=== PATIENT | male | born 1975 | race African-American/Black ===

== ENCOUNTER 2020-05-28 10:07 | Emergency (ER) | payer OTHER ==
[~2020-05-28] VITALS: Ht 177.8 cm; Wt 81.8 kg
[2020-05-28 10:33] LABS: BASOPHILS % (AUTO) 0.4 % (0.0-2.0); EOSINOPHILS % (AUTO) 1.1 % (1.0-6.0); HEMATOCRIT 47.5 % (41-53); HEMOGLOBIN 16.3 g/dL (13.5-17.5); LYMPHOCYTES # (AUTO) 2.8 K/uL (1.0-4.8); LYMPHOCYTES % (AUTO) 38.7 % (22.0-44.0); MEAN CORPUSCULAR HEMOGLOBIN 28.3 pg (26.0-34.0); MEAN CORPUSCULAR HGB CONC 34.3 G/dL (31.0-37.0); MEAN CORPUSCULAR VOLUME 83 fL (80-100); MONOCYTES # (AUTO) 0.7 K/uL (0.1-1.0); MONOCYTES % (AUTO) 10.5 % (2.0-9.0); NEUTROPHILS # (AUTO) 3.5 K/uL (1.8-7.7); NEUTROPHILS % (AUTO) 49.3 % (40.0-70.0); PLATELET COUNT (AUTO) 222 K/uL (150-450); RED BLOOD CELL COUNT(AUTO) 5.76 MIL/uL (4.50-5.90); RED CELL DISTRIBUTION WIDTH 13.3 % (11.5-14.5)
[2020-05-28 10:49] LABS: ANION GAP 5 mmol/L (8-16); CALCIUM, TOTAL 9.2 mg/dL (8.8-10.5); CARBON DIOXIDE 26 mmol/L (22-29); CHLORIDE 106 mmol/L (98-107); CREATININE 1.37 mg/dL (0.60-1.30); GLOMERULAR FILTR. RATE CALC > 60 mL/min (>60); GLUCOSE,RANDOM 162 mg/dL (70-110); POTASSIUM 3.9 mmol/L (3.5-5.1); SODIUM SERUM 137 mmol/L (136-145); UREA NITROGEN, BLOOD 15 mg/dL (7-18)
[2020-05-28 10:54] LABS: B-TYPE NATRIURETIC PEPTIDE 65 pg/mL (0-100)
[2020-05-28 10:55] LABS: ALANINE AMINOTRANSFERASE 24 U/L (12-78); ALBUMIN 3.2 g/dL (3.4-5.0); ALKALINE PHOSPHATASE 87 U/L (46-116); ASPARTATE AMINOTRANSFERASE 18 U/L (15-37); BILIRUBIN,TOTAL 0.9 mg/dL (0.1-1.0); TOTAL PROTEIN, SERUM 7.3 g/dL (6.4-8.2)
[2020-05-28] MEDS ORDERED: ACETAMINOPHEN 500 MG TABLET PO ONE (11:15)
[2020-05-28] MEDS ORDERED: FAMOTIDINE 20 MG TABLET PO ONE (11:15)
[2020-05-28] MEDS ORDERED: MAG HYDROX/AL HYDROX/SIMETH ES 30 ML SUSPENSION UDCUP PO ONE (11:15)
[2020-05-28 11:38] VITALS: BP 132/90
== END 2020-05-28 11:35 | disposition home or self-care (01) ==
LOC: EMS 10:20
DX: K21.9 Gastro-esophageal reflux disease without esophagitis (principal); R07.89 Other chest pain; F41.9 Anxiety disorder, unspecified; F17.210 Nicotine dependence, cigarettes, uncomplicated; E11.9 Type 2 diabetes mellitus without complications; I10 Essential (primary) hypertension
CPT/HCPCS: 36415; 80053; 82962; 83880; 84484; 85025; 93005; 99284; G0480

== ENCOUNTER 2021-01-08 23:20 | Emergency (ER) | payer OTHER ==
[~2021-01-08] VITALS: Ht 177.8 cm; Wt 86.4 kg
[2021-01-09] MEDS ORDERED: KETOROLAC TROMETHAMINE 30 MG/ML VIAL IM ONE
[2021-01-09] MEDS ORDERED: GABAPENTIN 100 MG CAPSULE PO ONE
[2021-01-09 00:50] LABS: ANION GAP 11 mmol/L (8-16); CALCIUM, TOTAL 8.8 mg/dL (8.8-10.5); CARBON DIOXIDE 27 mmol/L (22-29); CHLORIDE 104 mmol/L (98-107); CREATININE 1.48 mg/dL (0.60-1.30); GLOMERULAR FILTR. RATE CALC > 60 mL/min (>60); GLUCOSE,RANDOM 192 mg/dL (70-110); POTASSIUM 3.9 mmol/L (3.5-5.1); SODIUM SERUM 142 mmol/L (136-145); UREA NITROGEN, BLOOD 11 mg/dL (7-18)
[2021-01-09 00:56] LABS: ALANINE AMINOTRANSFERASE 27 U/L (12-78); ALBUMIN 2.8 g/dL (3.4-5.0); ALKALINE PHOSPHATASE 100 U/L (46-116); ASPARTATE AMINOTRANSFERASE 18 U/L (15-37)
[2021-01-09 01:10] LABS: MEAN CORPUSCULAR VOLUME 79 fL (80-100); MONOCYTES # (AUTO) 0.7 K/uL (0.1-1.0)
[2021-01-09 01:13] LABS: BASOPHILS % (AUTO) 1.6 % (0.0-2.0); EOSINOPHILS % (AUTO) 3.2 % (1.0-6.0); HEMATOCRIT 46.1 % (41-53); LYMPHOCYTES % (AUTO) 33.5 % (22.0-44.0); MEAN CORPUSCULAR HEMOGLOBIN 27.4 pg (26.0-34.0); MEAN CORPUSCULAR HGB CONC 34.7 G/dL (31.0-37.0); MONOCYTES % (AUTO) 10.8 % (2.0-9.0); NEUTROPHILS # (AUTO) 3.1 K/uL (1.8-7.7); NEUTROPHILS % (AUTO) 50.9 % (40.0-70.0); PLATELET COUNT (AUTO) 247 K/uL (150-450); RED BLOOD CELL COUNT(AUTO) 5.83 MIL/uL (4.50-5.90)
[2021-01-09] MEDS ORDERED: LISINOPRIL 10 MG TABLET PO ONE (01:15)
[2021-01-09] MEDS ORDERED: INSULIN NPH, HUMAN ISOPHANE 100 UNITS/ML SQ ONE (01:15)
[2021-01-09] MEDS ORDERED: HYDROCHLOROTHIAZIDE 25 MG TABLET PO ONE (01:15)
[2021-01-09 02:20] VITALS: BP 165/113
[2021-01-09 02:52] LABS: GLUCOSE,POINT OF CARE 190 MG/DL (70-110)
== END 2021-01-09 02:30 | disposition home or self-care (01) ==
LOC: EMS 23:22
DX: E11.40 Type 2 diabetes mellitus with diabetic neuropathy, unspecified (principal); E11.65 Type 2 diabetes mellitus with hyperglycemia; I10 Essential (primary) hypertension; F41.9 Anxiety disorder, unspecified; Z87.891 Personal history of nicotine dependence; Z91.14 Patient's other noncompliance with medication regimen; Z79.4 Long term (current) use of insulin
CPT/HCPCS: 36415; 80053; 82948; 82962; 85025; 96372 ×2; 99284; J1815; J1885

== ENCOUNTER 2021-09-11 16:36 | Inpatient (IN) | payer OTHER ==
[~2021-09-11] VITALS: Ht 177.8 cm; Wt 86.9 kg
[~2021-09-11 16:36] MED LIST: ATOR10TA84 PO; GABA-1181 PO; GLYB2.5T6 PO; LISI-892 PO; OMEP20 PO
[2021-09-11] MEDS ORDERED: SODIUM CHLORIDE 0.9% 1,000 ML IV ONE ×2 (17:30→19:15)
[2021-09-11 17:43] LABS: PROTHROMBIN TIME 10.2 SEC (9.4-11.6)
[2021-09-11 17:44] LABS: ANION GAP 10 mmol/L (8-16); CARBON DIOXIDE 26 mmol/L (22-29); CHLORIDE 102 mmol/L (98-107); CREATININE 1.32 mg/dL (0.60-1.30); GLOMERULAR FILTR. RATE CALC > 60 mL/min (>60); GLUCOSE,RANDOM 364 mg/dL (70-110); POTASSIUM 3.7 mmol/L (3.5-5.1); SODIUM SERUM 138 mmol/L (136-145); UREA NITROGEN, BLOOD 18 mg/dL (7-18)
[2021-09-11 17:45] LABS: B-TYPE NATRIURETIC PEPTIDE 127 pg/mL (0-100)
[2021-09-11] MEDS ORDERED: ACETAMINOPHEN 500 MG TABLET PO ONE (17:45)
[2021-09-11 17:50] LABS: ALANINE AMINOTRANSFERASE 18 U/L (12-78); ALBUMIN 2.6 g/dL (3.4-5.0); ALKALINE PHOSPHATASE 98 U/L (46-116); ASPARTATE AMINOTRANSFERASE 15 U/L (15-37); BILIRUBIN,TOTAL 0.6 mg/dL (0.1-1.0); CREATINE KINASE, TOTAL ONLY 71 U/L (39-308); PHOSPHORUS 2.9 mg/dL (2.5-4.9); TOTAL PROTEIN, SERUM 6.7 g/dL (6.4-8.2)
[2021-09-11] MEDS ORDERED: MAGNESIUM SULFATE 2 GM/WATER 50 ML IV ONE (18:00)
[2021-09-11] MEDS ORDERED: LABETALOL HCL 5 MG/ML 20 ML VIAL IVP ONE (18:00)
[2021-09-11 18:02] LABS: ACETONE,BLOOD NEGATIVE (NEGATIVE)
[2021-09-11 18:04] LABS: BASOPHILS % (AUTO) 0.4 % (0.0-2.0); EOSINOPHILS % (AUTO) 1.2 % (1.0-6.0); HEMOGLOBIN 15.8 g/dL (13.5-17.5); LYMPHOCYTES % (AUTO) 32.8 % (22.0-44.0); MEAN CORPUSCULAR HEMOGLOBIN 27.3 pg (26.0-34.0); MEAN CORPUSCULAR HGB CONC 32.8 G/dL (31.0-37.0); MEAN CORPUSCULAR VOLUME 83 fL (80-100); MONOCYTES # (AUTO) 0.7 K/uL (0.1-1.0); MONOCYTES % (AUTO) 11.4 % (2.0-9.0); NEUTROPHILS # (AUTO) 3.4 K/uL (1.8-7.7); NEUTROPHILS % (AUTO) 54.2 % (40.0-70.0); PLATELET COUNT (AUTO) 276 K/uL (150-450); RED BLOOD CELL COUNT(AUTO) 5.78 MIL/uL (4.50-5.90); RED CELL DISTRIBUTION WIDTH 13.7 % (11.5-14.5)
[2021-09-11 18:09] LABS: COVID AG,FIA SOURCE NASOPHARYNGEAL
[2021-09-11] MEDS ORDERED: DEXTROSE 50%-WATER 25 GM/50 ML SYRINGE IVP PRN (18:45)
[2021-09-11] MEDS ORDERED: MAGNESIUM OXIDE 400 MG TABLET PO ONE (18:45)
[2021-09-11] MEDS ORDERED: ACETAMINOPHEN 325 MG TABLET PO PRN (19:00)
[2021-09-11] MEDS ORDERED: ONDANSETRON HCL 4 MG/2 ML VIAL IVP PRN (19:00)
[2021-09-11] MEDS ORDERED: MAGNESIUM HYDROXIDE SUSPENSION 30 ML UDCUP PO PRN (19:00)
[2021-09-11] MEDS ORDERED: ZOLPIDEM TARTRATE 5 MG TABLET PO PRN (19:00)
[2021-09-11] MEDS: CloNIDine HCL 0.1 MG TABLET PO PRN (19:10)
[2021-09-11 19:21] LABS: GLUCOMETER DEV NAME(LOC) ERT.5; GLUCOSE,POINT OF CARE 310 MG/DL (70-110)
[2021-09-11] MEDS: ASPIRIN 81 MG CHEWABLE TABLET PO SCH (21:30)
[2021-09-11] MEDS: METOPROLOL TARTRATE 25 MG TABLET PO SCH (21:30)
[2021-09-11] MEDS: GlyBURIDE 5 MG TABLET PO SCH (21:41)
[2021-09-11] MEDS: LOSARTAN POTASSIUM 25 MG TABLET PO SCH (21:41)
[2021-09-11] MEDS: GABAPENTIN 300 MG CAPSULE PO SCH (21:41)
[2021-09-12 03:14] VITALS: BP 144/106
[2021-09-12 04:57] LABS: GLUCOMETER DEV NAME(LOC) 5S.1; GLUCOSE,POINT OF CARE 173 MG/DL (70-110)
[2021-09-12] MEDS: INSULIN LISPRO 100 UNITS/ML SQ PRN ×4 (06:43→21:22)
[2021-09-12 07:39] VITALS: BP 142/92
[2021-09-12 08:03] LABS: GLUCOMETER DEV NAME(LOC) 5S.2B; GLUCOSE,POINT OF CARE 195 MG/DL (70-110)
[2021-09-12] MEDS ORDERED: GABAPENTIN 100 MG CAPSULE PO SCH (09:00)
[2021-09-12] MEDS: ASPIRIN 81 MG CHEWABLE TABLET PO SCH (09:11)
[2021-09-12] MEDS: GABAPENTIN 300 MG CAPSULE PO SCH ×2 (09:12→21:23)
[2021-09-12] MEDS: LOSARTAN POTASSIUM 25 MG TABLET PO SCH ×2 (09:12→21:22)
[2021-09-12] MEDS: FAMOTIDINE 20 MG TABLET PO SCH (09:12)
[2021-09-12] MEDS: METOPROLOL TARTRATE 25 MG TABLET PO SCH (09:12)
[2021-09-12] MEDS: GlyBURIDE 5 MG TABLET PO SCH ×2 (09:12→17:40)
[2021-09-12 11:55] VITALS: BP 129/91
[2021-09-12 12:36] LABS: GLUCOMETER DEV NAME(LOC) 5N.3; GLUCOSE,POINT OF CARE 239 MG/DL (70-110)
[2021-09-12] MEDS: OxyCODONE HCL/ACETAMINOPHEN 5-325 MG TABLET PO PRN (16:41)
[2021-09-12 16:58] VITALS: BP 130/98
[2021-09-12] MEDS: METOPROLOL SUCCINATE 50 MG ER TABLET PO SCH (17:38)
[2021-09-12 18:06] LABS: GLUCOMETER DEV NAME(LOC) 5S.2B; GLUCOSE,POINT OF CARE 251 MG/DL (70-110)
[2021-09-12 19:55] VITALS: BP 124/87
[2021-09-12 20:21] LABS: GLUCOMETER DEV NAME(LOC) 5S.1; GLUCOSE,POINT OF CARE 201 MG/DL (70-110)
[2021-09-13] VITALS (15 sets, daily range): BP systolic 116–166; BP diastolic 69–124
[2021-09-13] MEDS: INSULIN LISPRO 100 UNITS/ML SQ PRN ×2 (06:26→17:43)
[2021-09-13 07:47] LABS: GLUCOMETER DEV NAME(LOC) 5S.2B; GLUCOSE,POINT OF CARE 174 MG/DL (70-110)
[2021-09-13] MEDS: ASPIRIN 81 MG CHEWABLE TABLET PO SCH ×2 (09:00→13:51)
[2021-09-13] MEDS ORDERED: IOHEXOL 300 MG/ML 100 ML VIAL ONE (10:40)
[2021-09-13] MEDS ORDERED: IOHEXOL 300 MG/ML 150 ML VIAL ONE (10:40)
[2021-09-13] MEDS ORDERED: SODIUM BICARBONATE 50 MEQ/50 ML VIAL ONE (10:40)
[2021-09-13] MEDS ORDERED: IOHEXOL 300 MG/ML 50 ML VIAL ONE (10:40)
[2021-09-13] MEDS ORDERED: LIDOCAINE/PF 1% 30 ML VIAL ONE (10:40)
[2021-09-13] MEDS ORDERED: HEPARIN SODIUM 1000 UNITS/NS 1,000 ML ONE (10:40)
[2021-09-13] MEDS ORDERED: MIDAZOLAM HCL 2 MG/2 ML VIAL ONE (11:08)
[2021-09-13] MEDS ORDERED: FentaNYL CITRATE PF 100 MCG/2 ML VIAL ONE (11:08)
[2021-09-13] MEDS ORDERED: IOHEXOL 300 MG/ML 150 ML VIAL IARTER ONE (11:30)
[2021-09-13] MEDS ORDERED: MIDAZOLAM HCL 2 MG/2 ML VIAL IVP ONE (11:30)
[2021-09-13] MEDS ORDERED: HEPARIN SODIUM 1000 UNITS/NS 1,000 ML IARTER ONE (11:30)
[2021-09-13] MEDS ORDERED: FentaNYL CITRATE PF 100 MCG/2 ML VIAL IVP ONE (11:30)
[2021-09-13] MEDS ORDERED: LIDOCAINE 1% 30 ML/SOD BICARB 8.4% 4 ML SQ ONE (11:30)
[2021-09-13 11:38] LABS: GLUCOMETER DEV NAME(LOC) 5S.1; GLUCOSE,POINT OF CARE 133 MG/DL (70-110)
[2021-09-13] MEDS: METOPROLOL SUCCINATE 50 MG ER TABLET PO SCH (13:50)
[2021-09-13] MEDS: GlyBURIDE 5 MG TABLET PO SCH ×2 (13:50→17:43)
[2021-09-13] MEDS: GABAPENTIN 300 MG CAPSULE PO SCH ×2 (13:50→20:49)
[2021-09-13] MEDS: LOSARTAN POTASSIUM 25 MG TABLET PO SCH ×2 (13:50→20:49)
[2021-09-13] MEDS: FAMOTIDINE 20 MG TABLET PO SCH (13:50)
[2021-09-13] MEDS: CloNIDine HCL 0.1 MG TABLET PO PRN (15:48)
[2021-09-13 18:05] LABS: GLUCOMETER DEV NAME(LOC) 5S.2B; GLUCOSE,POINT OF CARE 187 MG/DL (70-110)
[2021-09-13] MEDS ORDERED: MORPHINE SULFATE 2 MG/ML SYRINGE IVP ONE (20:45)
[2021-09-13 22:47] LABS: GLUCOMETER DEV NAME(LOC) 5S.1; GLUCOSE,POINT OF CARE 194 MG/DL (70-110)
[2021-09-14] VITALS (7 sets, daily range): BP systolic 130–156; BP diastolic 80–110
[2021-09-14 06:23] LABS: BASOPHILS % (AUTO) 0.3 % (0.0-2.0); EOSINOPHILS % (AUTO) 0.9 % (1.0-6.0); HEMATOCRIT 47.4 % (41-53); HEMOGLOBIN 15.4 g/dL (13.5-17.5); LYMPHOCYTES # (AUTO) 2.5 K/uL (1.0-4.8); MEAN CORPUSCULAR HEMOGLOBIN 27.6 pg (26.0-34.0); MEAN CORPUSCULAR HGB CONC 32.6 G/dL (31.0-37.0); MEAN CORPUSCULAR VOLUME 85 fL (80-100); MONOCYTES # (AUTO) 0.7 K/uL (0.1-1.0); NEUTROPHILS # (AUTO) 3.1 K/uL (1.8-7.7); NEUTROPHILS % (AUTO) 48.8 % (40.0-70.0); PLATELET COUNT (AUTO) 261 K/uL (150-450); RED BLOOD CELL COUNT(AUTO) 5.59 MIL/uL (4.50-5.90)
[2021-09-14] MEDS: INSULIN LISPRO 100 UNITS/ML SQ PRN ×4 (06:24→20:30)
[2021-09-14 06:54] LABS: ANION GAP 6 mmol/L (8-16); CALCIUM, TOTAL 8.6 mg/dL (8.8-10.5); CARBON DIOXIDE 27 mmol/L (22-29); CHLORIDE 105 mmol/L (98-107); CREATININE 1.34 mg/dL (0.60-1.30); GLOMERULAR FILTR. RATE CALC > 60 mL/min (>60); GLUCOSE,RANDOM 192 mg/dL (70-110); POTASSIUM 3.8 mmol/L (3.5-5.1); SODIUM SERUM 138 mmol/L (136-145); UREA NITROGEN, BLOOD 19 mg/dL (7-18)
[2021-09-14] MEDS: GlyBURIDE 5 MG TABLET PO SCH ×2 (08:52→16:49)
[2021-09-14] MEDS: METOPROLOL SUCCINATE 50 MG ER TABLET PO SCH (08:53)
[2021-09-14] MEDS: GABAPENTIN 300 MG CAPSULE PO SCH ×2 (08:53→20:28)
[2021-09-14] MEDS: FAMOTIDINE 20 MG TABLET PO SCH (08:54)
[2021-09-14] MEDS: ASPIRIN 81 MG CHEWABLE TABLET PO SCH (08:54)
[2021-09-14] MEDS ORDERED: SACUBITRIL/VALSARTAN 24-26 MG TABLET PO SCH (09:00)
[2021-09-14 11:23] LABS: GLUCOMETER DEV NAME(LOC) 5S.1; GLUCOSE,POINT OF CARE 251 MG/DL (70-110)
[2021-09-14] MEDS ORDERED: SACUBITRIL/VALSARTAN 24-26 MG TABLET PO ONE (16:15)
[2021-09-14 17:33] LABS: GLUCOMETER DEV NAME(LOC) 5N.3; GLUCOSE,POINT OF CARE 209 MG/DL (70-110)
[2021-09-14 17:33] LABS: GLUCOMETER DEV NAME(LOC) 5N.3; GLUCOSE,POINT OF CARE 267 MG/DL (70-110)
[2021-09-14] MEDS: SACUBITRIL/VALSARTAN 49-51 MG TABLET PO SCH (20:28)
[2021-09-15 00:27] VITALS: BP 133/98
[2021-09-15] MEDS: OxyCODONE HCL/ACETAMINOPHEN 5-325 MG TABLET PO PRN (03:10)
[2021-09-15 04:52] VITALS: BP 145/100
[2021-09-15] MEDS: INSULIN LISPRO 100 UNITS/ML SQ PRN ×2 (06:25→11:33)
[2021-09-15 06:45] LABS: BASOPHILS % (AUTO) 0.3 % (0.0-2.0); EOSINOPHILS % (AUTO) 0.7 % (1.0-6.0); HEMATOCRIT 51.1 % (41-53); HEMOGLOBIN 16.8 g/dL (13.5-17.5); LYMPHOCYTES # (AUTO) 2.5 K/uL (1.0-4.8); LYMPHOCYTES % (AUTO) 34.9 % (22.0-44.0); MEAN CORPUSCULAR HEMOGLOBIN 27.6 pg (26.0-34.0); MEAN CORPUSCULAR HGB CONC 32.8 G/dL (31.0-37.0); MEAN CORPUSCULAR VOLUME 84 fL (80-100); MONOCYTES # (AUTO) 0.9 K/uL (0.1-1.0); MONOCYTES % (AUTO) 12.2 % (2.0-9.0); NEUTROPHILS # (AUTO) 3.7 K/uL (1.8-7.7); NEUTROPHILS % (AUTO) 51.9 % (40.0-70.0); PLATELET COUNT (AUTO) 258 K/uL (150-450); RED BLOOD CELL COUNT(AUTO) 6.07 MIL/uL (4.50-5.90); RED CELL DISTRIBUTION WIDTH 13.8 % (11.5-14.5)
[2021-09-15 07:20] LABS: ALANINE AMINOTRANSFERASE 19 U/L (12-78); ALBUMIN 2.4 g/dL (3.4-5.0); ALKALINE PHOSPHATASE 95 U/L (46-116); ANION GAP 5 mmol/L (8-16); ASPARTATE AMINOTRANSFERASE 19 U/L (15-37); BILIRUBIN,TOTAL 0.8 mg/dL (0.1-1.0); CALCIUM, TOTAL 8.9 mg/dL (8.8-10.5); CARBON DIOXIDE 27 mmol/L (22-29); CHLORIDE 105 mmol/L (98-107); CREATININE 1.25 mg/dL (0.60-1.30); GLOMERULAR FILTR. RATE CALC > 60 mL/min (>60); GLUCOSE,RANDOM 211 mg/dL (70-110); POTASSIUM 4.1 mmol/L (3.5-5.1); SODIUM SERUM 137 mmol/L (136-145); TOTAL PROTEIN, SERUM 6.7 g/dL (6.4-8.2); UREA NITROGEN, BLOOD 19 mg/dL (7-18)
[2021-09-15 08:02] VITALS: BP 147/99
[2021-09-15] MEDS ORDERED: MAGNESIUM OXIDE 400 MG TABLET PO ONE (09:15)
[2021-09-15] MEDS ORDERED: CARVEDILOL 25 MG TABLET PO SCH (09:15)
[2021-09-15] MEDS: FAMOTIDINE 20 MG TABLET PO SCH (10:12)
[2021-09-15] MEDS: SACUBITRIL/VALSARTAN 49-51 MG TABLET PO SCH (10:13)
[2021-09-15] MEDS: ASPIRIN 81 MG CHEWABLE TABLET PO SCH (10:13)
[2021-09-15] MEDS: GlyBURIDE 5 MG TABLET PO SCH (10:13)
[2021-09-15] MEDS: GABAPENTIN 300 MG CAPSULE PO SCH (10:14)
[2021-09-15 12:39] VITALS: BP 128/95
[2021-09-15 20:19] LABS: GLUCOMETER DEV NAME(LOC) 5S.1; GLUCOSE,POINT OF CARE 223 MG/DL (70-110)
[2021-09-16 06:19] LABS: GLUCOMETER DEV NAME(LOC) 5N.3; GLUCOSE,POINT OF CARE 259 MG/DL (70-110)
[2021-09-16 06:19] LABS: GLUCOMETER DEV NAME(LOC) 5N.3; GLUCOSE,POINT OF CARE 150 MG/DL (70-110)
== END 2021-09-15 15:10 | disposition home or self-care (01) | DRG 192 ==
LOC: EMS 16:36 → 5S 18:45
PROVIDERS: ADMIT Internal Medicine; ATTEND Internal Medicine
PROC: 4A023N8 Measurement of Cardiac Sampling and Pressure, Bilateral, Percutaneous Approach (ICD-10-PCS; principal; 2021-09-13)
PROC: B2111ZZ Fluoroscopy of Multiple Coronary Arteries using Low Osmolar Contrast (ICD-10-PCS; 2021-09-13)
PROC: B2151ZZ Fluoroscopy of Left Heart using Low Osmolar Contrast (ICD-10-PCS; 2021-09-13)
DX: I11.0 Hypertensive heart disease with heart failure (principal); I27.20 Pulmonary hypertension, unspecified; I42.8 Other cardiomyopathies; I16.0 Hypertensive urgency; I50.43 Acute on chronic combined systolic (congestive) and diastolic (congestive) heart failure; E11.40 Type 2 diabetes mellitus with diabetic neuropathy, unspecified; E11.65 Type 2 diabetes mellitus with hyperglycemia; E78.5 Hyperlipidemia, unspecified; F17.200 Nicotine dependence, unspecified, uncomplicated; I34.0 Nonrheumatic mitral (valve) insufficiency; Z20.822 Contact with and (suspected) exposure to COVID-19; Z82.49 Family history of ischemic heart disease and other diseases of the circulatory system; Z91.14 Patient's other noncompliance with medication regimen
CPT/HCPCS: 71045; 80048; 80053; 82009; 82550; 82962; 83735; 83880; 84100; 84484; 85025; 85610; 85730; 93005; 93306; 93460; 93926; 99285; J1644; J2250; J3010; J3475; J3490; J7030; Q9967; 36415-L1; 36415-TC

== ENCOUNTER 2021-12-15 11:22 | Inpatient (IN) | payer OTHER ==
[~2021-12-15] VITALS: Ht 177.8 cm; Wt 79.5 kg
[~2021-12-15 11:22] MED LIST changes: -GLYB2.5T6 PO; -LISI-892 PO
[2021-12-15] MEDS ORDERED: PIPERACILLIN/TAZO 3.375 GM/D5W 50 ML IV ONE (11:45)
[2021-12-15] MEDS ORDERED: VANCOMYCIN HCL 1 GM/D5% WATER 200 ML IV ONE (11:45)
[2021-12-15 12:06] LABS: BASOPHILS % (AUTO) 0.2 % (0.0-2.0); EOSINOPHILS % (AUTO) 1.1 % (1.0-6.0); HEMATOCRIT 42.6 % (41-53); HEMOGLOBIN 14.1 g/dL (13.5-17.5); LYMPHOCYTES # (AUTO) 1.7 K/uL (1.0-4.8); LYMPHOCYTES % (AUTO) 27.9 % (22.0-44.0); MEAN CORPUSCULAR HEMOGLOBIN 27.2 pg (26.0-34.0); MEAN CORPUSCULAR HGB CONC 33.1 G/dL (31.0-37.0); MEAN CORPUSCULAR VOLUME 82 fL (80-100); MONOCYTES # (AUTO) 0.7 K/uL (0.1-1.0); MONOCYTES % (AUTO) 10.7 % (2.0-9.0); NEUTROPHILS # (AUTO) 3.8 K/uL (1.8-7.7); NEUTROPHILS % (AUTO) 60.1 % (40.0-70.0); PLATELET COUNT (AUTO) 200 K/uL (150-450); RED BLOOD CELL COUNT(AUTO) 5.18 MIL/uL (4.50-5.90); RED CELL DISTRIBUTION WIDTH 14.2 % (11.5-14.5)
[2021-12-15 12:15] LABS: ANION GAP 9 mmol/L (8-16); CALCIUM, TOTAL 8.2 mg/dL (8.8-10.5); CARBON DIOXIDE 25 mmol/L (22-29); CHLORIDE 105 mmol/L (98-107); CREATININE 1.25 mg/dL (0.60-1.30); GLOMERULAR FILTR. RATE CALC > 60 mL/min (>60); GLUCOSE,RANDOM 245 mg/dL (70-110); POTASSIUM 3.5 mmol/L (3.5-5.1); SODIUM SERUM 139 mmol/L (136-145); UREA NITROGEN, BLOOD 14 mg/dL (7-18)
[2021-12-15 12:21] LABS: ALANINE AMINOTRANSFERASE 17 U/L (12-78); ALBUMIN 2.1 g/dL (3.4-5.0); ALKALINE PHOSPHATASE 108 U/L (46-116); ASPARTATE AMINOTRANSFERASE 20 U/L (15-37); BILIRUBIN,TOTAL 0.8 mg/dL (0.1-1.0); TOTAL PROTEIN, SERUM 6.2 g/dL (6.4-8.2)
[2021-12-15] MEDS ORDERED: DEXTROSE 50%-WATER 25 GM/50 ML SYRINGE IVP PRN ×2 (13:30→16:30)
[2021-12-15] MEDS ORDERED: MORPHINE SULFATE 4 MG/ML SYRINGE IVP PRN (13:30)
[2021-12-15] MEDS ORDERED: ACETAMINOPHEN 325 MG TABLET PO PRN ×2 (13:30→16:30)
[2021-12-15] MEDS ORDERED: INSULIN LISPRO 100 UNITS/ML SQ PRN (13:30)
[2021-12-15] MEDS ORDERED: HYDROCODONE/ACETAMINOPHEN 5-325 MG TABLET PO PRN (13:30)
[2021-12-15] MEDS ORDERED: ONDANSETRON HCL 4 MG/2 ML VIAL IVP PRN ×2 (13:30→16:30)
[2021-12-15 14:01] LABS: COVID AG,FIA SOURCE NASOPHARYNGEAL
[2021-12-15] MEDS ORDERED: BISACODYL 10 MG RECTAL RECTAL SUPPOSITORY PR PRN (16:30)
[2021-12-15] MEDS ORDERED: MORPHINE SULFATE 2 MG/ML SYRINGE IVP PRN (16:30)
[2021-12-15] MEDS ORDERED: MAGNESIUM HYDROXIDE SUSPENSION 30 ML UDCUP PO PRN (16:30)
[2021-12-15] MEDS ORDERED: ZOLPIDEM TARTRATE 5 MG TABLET PO PRN (16:30)
[2021-12-15 18:32] VITALS: BP 139/98
[2021-12-15] MEDS: INSULIN LISPRO 100 UNITS/ML SQ PRN ×2 (18:38→20:29)
[2021-12-15 19:11] LABS: GLUCOMETER DEV NAME(LOC) 6N.1; GLUCOSE,POINT OF CARE 223 MG/DL (70-110)
[2021-12-15 19:30] VITALS: BP 138/71
[2021-12-15] MEDS ORDERED: SODIUM CHLORIDE 0.9% 500 ML IV ONE (20:20)
[2021-12-15] MEDS: ATORVASTATIN CALCIUM 10 MG TABLET PO SCH (20:22)
[2021-12-15] MEDS: GABAPENTIN 300 MG CAPSULE PO SCH (20:22)
[2021-12-15] MEDS: HYDROCODONE/ACETAMINOPHEN 5-325 MG TABLET PO PRN (20:23)
[2021-12-15] MEDS: DOCUSATE SODIUM 100 MG CAPSULE PO SCH (20:26)
[2021-12-15] MEDS: VANCOMYCIN HCL 1 GM/D5% WATER 200 ML IV SCH (20:26)
[2021-12-15 20:31] LABS: GLUCOMETER DEV NAME(LOC) 6N.1; GLUCOSE,POINT OF CARE 175 MG/DL (70-110)
[2021-12-15] MEDS: HEPARIN SODIUM,PORCINE 5,000 UNITS/ML VIAL SQ SCH (23:33)
[2021-12-16 05:10] VITALS: BP 144/108
[2021-12-16 05:46] LABS: GLUCOMETER DEV NAME(LOC) 6N.1; GLUCOSE,POINT OF CARE 93 MG/DL (70-110)
[2021-12-16 06:30] VITALS: BP 155/110
[2021-12-16] MEDS: HYDROCODONE/ACETAMINOPHEN 5-325 MG TABLET PO PRN (06:40)
[2021-12-16] MEDS ORDERED: AmLODIPine BESYLATE 5 MG TABLET PO ONE (07:00)
[2021-12-16 07:58] LABS: BASOPHILS % (AUTO) 0.4 % (0.0-2.0); EOSINOPHILS % (AUTO) 2.4 % (1.0-6.0); HEMATOCRIT 42.5 % (41-53); HEMOGLOBIN 14.3 g/dL (13.5-17.5); LYMPHOCYTES # (AUTO) 1.6 K/uL (1.0-4.8); LYMPHOCYTES % (AUTO) 32.8 % (22.0-44.0); MEAN CORPUSCULAR HEMOGLOBIN 27.8 pg (26.0-34.0); MEAN CORPUSCULAR HGB CONC 33.7 G/dL (31.0-37.0); MEAN CORPUSCULAR VOLUME 82 fL (80-100); MONOCYTES # (AUTO) 0.4 K/uL (0.1-1.0); MONOCYTES % (AUTO) 9.1 % (2.0-9.0); NEUTROPHILS # (AUTO) 2.7 K/uL (1.8-7.7); NEUTROPHILS % (AUTO) 55.3 % (40.0-70.0); PLATELET COUNT (AUTO) 227 K/uL (150-450); RED BLOOD CELL COUNT(AUTO) 5.16 MIL/uL (4.50-5.90); RED CELL DISTRIBUTION WIDTH 14.6 % (11.5-14.5)
[2021-12-16 08:06] LABS: ANION GAP 10 mmol/L (8-16); CALCIUM, TOTAL 8.2 mg/dL (8.8-10.5); CARBON DIOXIDE 23 mmol/L (22-29); CHLORIDE 104 mmol/L (98-107); CREATININE 1.19 mg/dL (0.60-1.30); GLOMERULAR FILTR. RATE CALC > 60 mL/min (>60); GLUCOSE,RANDOM 228 mg/dL (70-110); POTASSIUM 3.7 mmol/L (3.5-5.1); SODIUM SERUM 137 mmol/L (136-145); UREA NITROGEN, BLOOD 11 mg/dL (7-18)
[2021-12-16 08:36] VITALS: BP 133/104
[2021-12-16] MEDS: PANTOPRAZOLE SODIUM 40 MG DR TABLET PO SCH (09:12)
[2021-12-16] MEDS: AmLODIPine BESYLATE 5 MG TABLET PO SCH (09:12)
[2021-12-16] MEDS: DOCUSATE SODIUM 100 MG CAPSULE PO SCH ×2 (09:12→20:40)
[2021-12-16] MEDS: GABAPENTIN 300 MG CAPSULE PO SCH ×3 (09:12→20:40)
[2021-12-16] MEDS: HEPARIN SODIUM,PORCINE 5,000 UNITS/ML VIAL SQ SCH ×3 (09:13→23:08)
[2021-12-16] MEDS: VANCOMYCIN HCL 1 GM/D5% WATER 200 ML IV SCH ×2 (09:20→20:40)
[2021-12-16 11:43] VITALS: BP 136/95
[2021-12-16] MEDS: INSULIN LISPRO 100 UNITS/ML SQ PRN ×2 (12:42→20:42)
[2021-12-16 13:01] LABS: GLUCOMETER DEV NAME(LOC) 6N.2; GLUCOSE,POINT OF CARE 265 MG/DL (70-110)
[2021-12-16 15:53] VITALS: BP 141/86
[2021-12-16] MEDS: MetFORMIN HCL 500 MG TABLET PO SCH (18:08)
[2021-12-16 19:20] VITALS: BP 146/84
[2021-12-16] MEDS: ATORVASTATIN CALCIUM 10 MG TABLET PO SCH (20:40)
[2021-12-16 21:01] LABS: GLUCOMETER DEV NAME(LOC) 6N.2; GLUCOSE,POINT OF CARE 90 MG/DL (70-110)
[2021-12-17 00:41] LABS: GLUCOMETER DEV NAME(LOC) 6N.1; GLUCOSE,POINT OF CARE 150 MG/DL (70-110)
[2021-12-17 04:05] VITALS: BP 145/105
[2021-12-17] MEDS: INSULIN LISPRO 100 UNITS/ML SQ PRN ×2 (06:10→20:48)
[2021-12-17] MEDS: AmLODIPine BESYLATE 5 MG TABLET PO SCH (06:54)
[2021-12-17] MEDS: HYDROCODONE/ACETAMINOPHEN 5-325 MG TABLET PO PRN ×2 (06:54→18:13)
[2021-12-17 07:11] LABS: GLUCOMETER DEV NAME(LOC) 6N.2; GLUCOSE,POINT OF CARE 224 MG/DL (70-110)
[2021-12-17 07:50] LABS: BASOPHILS % (AUTO) 0.4 % (0.0-2.0); EOSINOPHILS % (AUTO) 2.8 % (1.0-6.0); HEMATOCRIT 46.2 % (41-53); HEMOGLOBIN 15.3 g/dL (13.5-17.5); LYMPHOCYTES # (AUTO) 1.5 K/uL (1.0-4.8); LYMPHOCYTES % (AUTO) 29.8 % (22.0-44.0); MEAN CORPUSCULAR HEMOGLOBIN 27.5 pg (26.0-34.0); MEAN CORPUSCULAR HGB CONC 33.2 G/dL (31.0-37.0); MEAN CORPUSCULAR VOLUME 83 fL (80-100); MONOCYTES # (AUTO) 0.6 K/uL (0.1-1.0); MONOCYTES % (AUTO) 11.4 % (2.0-9.0); NEUTROPHILS # (AUTO) 2.8 K/uL (1.8-7.7); NEUTROPHILS % (AUTO) 55.6 % (40.0-70.0); PLATELET COUNT (AUTO) 235 K/uL (150-450); RED BLOOD CELL COUNT(AUTO) 5.58 MIL/uL (4.50-5.90); RED CELL DISTRIBUTION WIDTH 14.3 % (11.5-14.5)
[2021-12-17 08:02] VITALS: BP 157/114
[2021-12-17 08:08] LABS: ANION GAP 6 mmol/L (8-16); CALCIUM, TOTAL 8.8 mg/dL (8.8-10.5); CARBON DIOXIDE 28 mmol/L (22-29); CHLORIDE 104 mmol/L (98-107); CREATININE 1.39 mg/dL (0.60-1.30); GLOMERULAR FILTR. RATE CALC > 60 mL/min (>60); GLUCOSE,RANDOM 161 mg/dL (70-110); POTASSIUM 3.7 mmol/L (3.5-5.1); SODIUM SERUM 138 mmol/L (136-145); UREA NITROGEN, BLOOD 12 mg/dL (7-18); VANCOMYCIN,RANDOM 18.8 mcg/mL (25.0-50.0)
[2021-12-17 09:41] LABS: GLUCOMETER DEV NAME(LOC) 6N.1; GLUCOSE,POINT OF CARE 130 MG/DL (70-110)
[2021-12-17] MEDS ORDERED: *CLINICAL-LEVOFLOXACIN IVPB DOSING CLINICAL ONE (09:45)
[2021-12-17] MEDS ORDERED: SODIUM CHLORIDE 0.9% 1,000 ML IV ONE (09:45)
[2021-12-17] MEDS: PANTOPRAZOLE SODIUM 40 MG DR TABLET PO SCH (10:04)
[2021-12-17] MEDS: DOCUSATE SODIUM 100 MG CAPSULE PO SCH ×2 (10:04→20:45)
[2021-12-17] MEDS: GABAPENTIN 300 MG CAPSULE PO SCH ×3 (10:05→20:45)
[2021-12-17] MEDS: MetFORMIN HCL 500 MG TABLET PO SCH ×2 (10:05→18:13)
[2021-12-17] MEDS: HEPARIN SODIUM,PORCINE 5,000 UNITS/ML VIAL SQ SCH ×2 (10:37→18:14)
[2021-12-17] MEDS: LEVOFLOXACIN 750 MG/D5% WATER 150 ML IV SCH (10:37)
[2021-12-17 15:33] VITALS: BP 149/98
[2021-12-17] MEDS ORDERED: CloNIDine HCL 0.1 MG TABLET PO PRN (18:45)
[2021-12-17 18:47] LABS: GLUCOMETER DEV NAME(LOC) 6N.1; GLUCOSE,POINT OF CARE 131 MG/DL (70-110)
[2021-12-17] MEDS ORDERED: VANCOMYCIN HCL 750 MG in DEXTROSE 5%-WATER 250 ML IV SCH (20:00)
[2021-12-17 20:17] VITALS: BP 130/96
[2021-12-17] MEDS: ATORVASTATIN CALCIUM 10 MG TABLET PO SCH (20:45)
[2021-12-18] MEDS: HEPARIN SODIUM,PORCINE 5,000 UNITS/ML VIAL SQ SCH ×3 (00:02→16:42)
[2021-12-18 03:51] LABS: GLUCOMETER DEV NAME(LOC) 6N.1; GLUCOSE,POINT OF CARE 163 MG/DL (70-110)
[2021-12-18 04:38] VITALS: BP 120/32
[2021-12-18] MEDS: INSULIN LISPRO 100 UNITS/ML SQ PRN (05:39)
[2021-12-18 05:41] VITALS: BP 144/93
[2021-12-18 07:21] LABS: GLUCOMETER DEV NAME(LOC) 6N.1; GLUCOSE,POINT OF CARE 162 MG/DL (70-110)
[2021-12-18 07:25] LABS: BASOPHILS % (AUTO) 0.3 % (0.0-2.0); HEMATOCRIT 44.2 % (41-53); HEMOGLOBIN 14.8 g/dL (13.5-17.5); LYMPHOCYTES # (AUTO) 1.5 K/uL (1.0-4.8); MEAN CORPUSCULAR HEMOGLOBIN 27.4 pg (26.0-34.0); MEAN CORPUSCULAR HGB CONC 33.5 G/dL (31.0-37.0); MEAN CORPUSCULAR VOLUME 82 fL (80-100); MONOCYTES # (AUTO) 0.5 K/uL (0.1-1.0); MONOCYTES % (AUTO) 9.8 % (2.0-9.0); NEUTROPHILS # (AUTO) 2.8 K/uL (1.8-7.7); NEUTROPHILS % (AUTO) 55.9 % (40.0-70.0); PLATELET COUNT (AUTO) 244 K/uL (150-450); RED CELL DISTRIBUTION WIDTH 14.7 % (11.5-14.5)
[2021-12-18 07:51] LABS: ANION GAP 9 mmol/L (8-16); CALCIUM, TOTAL 8.5 mg/dL (8.8-10.5); CARBON DIOXIDE 25 mmol/L (22-29); CHLORIDE 105 mmol/L (98-107); CREATININE 1.31 mg/dL (0.60-1.30); GLUCOSE,RANDOM 153 mg/dL (70-110); POTASSIUM 3.8 mmol/L (3.5-5.1); SODIUM SERUM 139 mmol/L (136-145); UREA NITROGEN, BLOOD 11 mg/dL (7-18)
[2021-12-18 08:05] LABS: GLOMERULAR FILTR. RATE CALC > 60 mL/min (>60)
[2021-12-18 08:15] VITALS: BP 132/95
[2021-12-18] MEDS: LEVOFLOXACIN 750 MG/D5% WATER 150 ML IV SCH (09:09)
[2021-12-18] MEDS: MetFORMIN HCL 500 MG TABLET PO SCH (09:30)
[2021-12-18] MEDS: AmLODIPine BESYLATE 5 MG TABLET PO SCH (09:30)
[2021-12-18] MEDS: DOCUSATE SODIUM 100 MG CAPSULE PO SCH (09:30)
[2021-12-18] MEDS: GABAPENTIN 300 MG CAPSULE PO SCH ×2 (09:30→16:43)
[2021-12-18] MEDS: PANTOPRAZOLE SODIUM 40 MG DR TABLET PO SCH (09:31)
[2021-12-18 11:24] VITALS: BP 138/92
[2021-12-18] MEDS ORDERED: AMLO-257 PO (11:25)
[2021-12-18] MEDS ORDERED: METF-1211 PO (11:25)
[2021-12-18] MEDS ORDERED: CIPR-278 PO (11:25)
[2021-12-18 13:31] LABS: GLUCOMETER DEV NAME(LOC) 6N.1; GLUCOSE,POINT OF CARE 181 MG/DL (70-110)
[2021-12-18 21:36] LABS: GLUCOMETER DEV NAME(LOC) 6N.1; GLUCOSE,POINT OF CARE 110 MG/DL (70-110)
== END 2021-12-18 19:35 | disposition home health service (06) | DRG 420 ==
LOC: EMS 11:22 → 6N 14:11
PROVIDERS: ADMIT Internal Medicine; ATTEND Internal Medicine
DX: E11.621 Type 2 diabetes mellitus with foot ulcer (principal); I11.0 Hypertensive heart disease with heart failure; E44.0 Moderate protein-calorie malnutrition; I50.9 Heart failure, unspecified; L03.115 Cellulitis of right lower limb; Z20.822 Contact with and (suspected) exposure to COVID-19; E11.65 Type 2 diabetes mellitus with hyperglycemia; E78.5 Hyperlipidemia, unspecified; Z79.899 Other long term (current) drug therapy; Z68.25 Body mass index [BMI] 25.0-25.9, adult
CPT/HCPCS: 80048; 80053; 80202; 82962; 83036; 85025; 87070; 87205; 99285; J1644; J1956; J2270; J2543; J3370; J7030; J7040; J7060

== ENCOUNTER 2022-01-28 17:17 | Emergency (ER) | payer OTHER ==
[~2022-01-28] VITALS: Ht 175.3 cm; Wt 75.0 kg
[~2022-01-28 17:17] MED LIST changes: +AMLO-257 PO; +AMOX1TAB16 PO; +DOXY-354 PO; +METF-1211 PO; -OMEP20 PO
[2022-01-28] MEDS ORDERED: HYDROCODONE/ACETAMINOPHEN 5-325 MG TABLET PO ONE (18:00)
[2022-01-28 18:43] VITALS: BP 127/70
== END 2022-01-28 18:52 | disposition home or self-care (01) ==
LOC: EMS 17:17
DX: G89.29 Other chronic pain (principal); M79.671 Pain in right foot; E11.9 Type 2 diabetes mellitus without complications; I10 Essential (primary) hypertension; Z76.0 Encounter for issue of repeat prescription; Z79.84 Long term (current) use of oral hypoglycemic drugs
CPT/HCPCS: 82962; 99283

== ENCOUNTER 2022-09-16 15:56 | Inpatient (IN) | payer OTHER ==
[~2022-09-16] VITALS: Ht 177.8 cm; Wt 81.2 kg
[~2022-09-16 15:56] MED LIST changes: +ACET-2247 PO; +ACID1TAB13 PO; -AMOX1TAB16 PO; +ATOR10TA PO; -ATOR10TA84 PO; +BENZ9GEL2 TP; +CEFA2IV IV; +CLON0.1T2 PO; +D50SYG IVP; +DOCU-385 PO; -DOXY-354 PO; +FAMO20 PO; -GABA-1181 PO; +GABA-1216 PO; +INSU100V SQ; +LOSA-382 PO; +MAGN-169 PO; +MELA3TAB89 PO; +MULT-1239 PO; +TRAM-559 PO; +ZOLP-280 PO
[2022-09-16] MEDS ORDERED: SODIUM CHLORIDE 0.9% 100 ML ONE (16:36)
[2022-09-16] MEDS ORDERED: IOHEXOL 350 MG/ML 100 ML VIAL ONE (16:36)
[2022-09-16 16:48] LABS: BASOPHILS % (AUTO) 0.6 % (0.0-2.0); EOSINOPHILS % (AUTO) 1.1 % (1.0-6.0); HEMATOCRIT 49.5 % (41-53); HEMOGLOBIN 16.1 g/dL (13.5-17.5); LYMPHOCYTES # (AUTO) 1.4 K/uL (1.0-4.8); LYMPHOCYTES % (AUTO) 28.3 % (22.0-44.0); MEAN CORPUSCULAR HEMOGLOBIN 27.5 pg (26.0-34.0); MEAN CORPUSCULAR HGB CONC 32.5 G/dL (31.0-37.0); MEAN CORPUSCULAR VOLUME 85 fL (80-100); MONOCYTES # (AUTO) 0.6 K/uL (0.1-1.0); MONOCYTES % (AUTO) 11.8 % (2.0-9.0); NEUTROPHILS # (AUTO) 2.9 K/uL (1.8-7.7); NEUTROPHILS % (AUTO) 58.2 % (40.0-70.0); PLATELET COUNT (AUTO) 217 K/uL (150-450); RED BLOOD CELL COUNT(AUTO) 5.85 MIL/uL (4.50-5.90); RED CELL DISTRIBUTION WIDTH 14.4 % (11.5-14.5)
[2022-09-16 16:57] LABS: CALCIUM, TOTAL 8.7 mg/dL (8.8-10.5); CREATININE 1.68 mg/dL (0.60-1.30)
[2022-09-16] MEDS ORDERED: FUROSEMIDE 20 MG/2 ML VIAL IVP ONE (17:00)
[2022-09-16] MEDS ORDERED: AMLO-258 PO (17:02)
[2022-09-16] MEDS ORDERED: ASPIRIN 325 MG TABLET PO ONE (17:15)
[2022-09-16] MEDS ORDERED: VANCOMYCIN 1GM/WATER(PEG/NADA) 200 ML IV ONE (17:15)
[2022-09-16 17:23] LABS: ALBUMIN 1.9 g/dL (3.4-5.0); BILIRUBIN,TOTAL 0.9 mg/dL (0.1-1.0); TOTAL PROTEIN, SERUM 6.2 g/dL (6.4-8.2)
[2022-09-16] MEDS ORDERED: DEXTROSE 50%-WATER 25 GM/50 ML SYRINGE IVP PRN (18:30)
[2022-09-16] MEDS ORDERED: MAGNESIUM HYDROXIDE SUSPENSION 30 ML UDCUP PO PRN (18:30)
[2022-09-16] MEDS ORDERED: ONDANSETRON HCL 4 MG/2 ML VIAL IVP PRN (18:30)
[2022-09-16] MEDS ORDERED: LISINOPRIL 10 MG TABLET PO SCH (18:30)
[2022-09-16] MEDS ORDERED: OxyCODONE HCL/ACETAMINOPHEN 5-325 MG TABLET PO PRN ×2 (18:30)
[2022-09-16] MEDS ORDERED: ACETAMINOPHEN 325 MG TABLET PO PRN (18:30)
[2022-09-16] MEDS ORDERED: ZOLPIDEM TARTRATE 5 MG TABLET PO PRN (18:30)
[2022-09-16 18:55] LABS: COVID AG,FIA SOURCE NASOPHARYNGEAL
[2022-09-16] MEDS: ATORVASTATIN CALCIUM 20 MG TABLET PO SCH (20:20)
[2022-09-16] MEDS: FUROSEMIDE 20 MG/2 ML VIAL IVP SCH (20:20)
[2022-09-16] MEDS: DOCUSATE SODIUM 100 MG CAPSULE PO SCH (20:20)
[2022-09-16 21:10] VITALS: BP 163/124
[2022-09-16] MEDS ORDERED: SODIUM CHLORIDE 0.9% 250 ML IV ONE (21:37)
[2022-09-16] MEDS ORDERED: VANCOMYCIN HCL 500 MG in DEXTROSE 5%-WATER 100 ML IV ONE (22:00)
[2022-09-16] MEDS ORDERED: CloNIDine HCL 0.1 MG TABLET PO ONE (22:30)
[2022-09-16] MEDS: HEPARIN SODIUM,PORCINE 5,000 UNITS/ML VIAL SQ SCH (23:11)
[2022-09-17] VITALS (7 sets, daily range): BP systolic 122–167; BP diastolic 82–116
[2022-09-17] MEDS ORDERED: INFLUENZA VIRUS VACCINE QVS 2022-23 (6MO+)/PF 60 MCG/0.5 ML SYRINGE IM. ONE (04:00)
[2022-09-17] MEDS: INSULIN LISPRO 100 UNITS/ML SQ PRN ×4 (06:15→21:12)
[2022-09-17 07:40] LABS: ANION GAP 3 mmol/L (8-16); CALCIUM, TOTAL 8.4 mg/dL (8.8-10.5); CARBON DIOXIDE 29 mmol/L (22-29); CHLORIDE 104 mmol/L (98-107); CREATININE 1.35 mg/dL (0.60-1.30); GLUCOSE,RANDOM 151 mg/dL (70-110); SODIUM SERUM 136 mmol/L (136-145); UREA NITROGEN, BLOOD 13 mg/dL (7-18)
[2022-09-17 07:43] LABS: GLOMERULAR FILTR. RATE CALC > 60 mL/min (>60)
[2022-09-17 07:45] LABS: POTASSIUM 2.9 mmol/L (3.5-5.1)
[2022-09-17] MEDS: ASPIRIN 81 MG CHEWABLE TABLET PO SCH (08:59)
[2022-09-17] MEDS: LOSARTAN POTASSIUM 25 MG TABLET PO SCH (08:59)
[2022-09-17] MEDS: VANCOMYCIN HCL 750 MG in DEXTROSE 5%-WATER 250 ML IV SCH ×2 (08:59→20:18)
[2022-09-17] MEDS: HEPARIN SODIUM,PORCINE 5,000 UNITS/ML VIAL SQ SCH ×2 (08:59→17:38)
[2022-09-17] MEDS: METOPROLOL SUCCINATE 25 MG ER TABLET PO SCH (08:59)
[2022-09-17] MEDS: FAMOTIDINE 20 MG TABLET PO SCH (08:59)
[2022-09-17] MEDS: DOCUSATE SODIUM 100 MG CAPSULE PO SCH ×2 (09:00→20:59)
[2022-09-17] MEDS ORDERED: POTASSIUM CHLORIDE 10% 40 MEQ/30 ML LIQUID UDCUP PO ONE (09:45)
[2022-09-17] MEDS: FUROSEMIDE 20 MG/2 ML VIAL IVP SCH ×2 (11:07→20:59)
[2022-09-17] MEDS: SPIRONOLACTONE 25 MG TABLET PO SCH (11:08)
[2022-09-17] MEDS ORDERED: ALBUTEROL SULFATE 2.5 MG/0.5 ML NEB SOLUTION NEB PRN (20:00)
[2022-09-17] MEDS: ATORVASTATIN CALCIUM 20 MG TABLET PO SCH (20:59)
[2022-09-17 23:47] LABS: GLUCOMETER DEV NAME(LOC) 5N.1C; GLUCOSE,POINT OF CARE 159 MG/DL (70-110)
[2022-09-17 23:47] LABS: GLUCOMETER DEV NAME(LOC) 5N.1C; GLUCOSE,POINT OF CARE 130 MG/DL (70-110)
[2022-09-17 23:47] LABS: GLUCOMETER DEV NAME(LOC) 5S.1B; GLUCOSE,POINT OF CARE 200 MG/DL (70-110)
[2022-09-17 23:48] LABS: GLUCOMETER DEV NAME(LOC) 5S.1B; GLUCOSE,POINT OF CARE 185 MG/DL (70-110)
[2022-09-18] VITALS (8 sets, daily range): BP systolic 108–156; BP diastolic 67–109
[2022-09-18] MEDS: HEPARIN SODIUM,PORCINE 5,000 UNITS/ML VIAL SQ SCH ×4 (00:09→23:49)
[2022-09-18 04:27] LABS: APPEARANCE,URINE CLEAR (CLEAR); BILIRUBIN,URINE NEGATIVE (NEGATIVE); GLUCOSE, URINE (UA) NEGATIVE (NEGATIVE); KETONES,URINE NEGATIVE (NEGATIVE); LEUKOCYTE ESTERASE ,URINE NEGATIVE (NEGATIVE); NITRATE,URINE NEGATIVE (NEGATIVE); OCCULT BLOOD,URINE TRACE (NEGATIVE); PROTEIN,URINE 100-200,SEE CONFIRM mg/dL (NEGATIVE); UROBILINOGEN,URINE <=1.0 mg/dL (<=1.0)
[2022-09-18 04:55] LABS: SULFOSALICYLIC ACID,URINE Trace (Negative)
[2022-09-18 04:56] LABS: BACTERIA,URINE None Seen /HPF (None Seen); RBC,URINE 0-2 /HPF (0-2); SQUAMOUS EPITHELIAL CELL,UR None Seen /LPF (None Seen); WBC,URINE None Seen /HPF (0-5)
[2022-09-18] MEDS: INSULIN LISPRO 100 UNITS/ML SQ PRN ×3 (05:38→20:34)
[2022-09-18 06:58] LABS: CALCIUM, TOTAL 8.6 mg/dL (8.8-10.5); CREATININE 1.86 mg/dL (0.60-1.30); POTASSIUM 3.9 mmol/L (3.5-5.1); VANCOMYCIN,RANDOM 11.9 mcg/mL (25.0-50.0)
[2022-09-18] MEDS: DOCUSATE SODIUM 100 MG CAPSULE PO SCH ×2 (08:01→20:33)
[2022-09-18] MEDS: SPIRONOLACTONE 25 MG TABLET PO SCH (08:12)
[2022-09-18] MEDS: FAMOTIDINE 20 MG TABLET PO SCH (08:12)
[2022-09-18] MEDS: LOSARTAN POTASSIUM 25 MG TABLET PO SCH (08:12)
[2022-09-18] MEDS: ASPIRIN 81 MG CHEWABLE TABLET PO SCH (08:12)
[2022-09-18] MEDS: METOPROLOL SUCCINATE 25 MG ER TABLET PO SCH (08:12)
[2022-09-18] MEDS: FUROSEMIDE 20 MG/2 ML VIAL IVP SCH (09:22)
[2022-09-18] MEDS: VANCOMYCIN 1GM/WATER(PEG/NADA) 200 ML IV SCH ×2 (09:22→19:31)
[2022-09-18 17:11] LABS: CALCIUM, TOTAL 8.6 mg/dL (8.8-10.5); CREATININE 1.83 mg/dL (0.60-1.30); MAGNESIUM 1.5 mg/dL (1.80-2.40); POTASSIUM 3.9 mmol/L (3.5-5.1)
[2022-09-18] MEDS ORDERED: MAGNESIUM SULFATE 2 GM/WATER 50 ML IV ONE (18:00)
[2022-09-18] MEDS: ATORVASTATIN CALCIUM 20 MG TABLET PO SCH (20:33)
[2022-09-19 05:08] VITALS: BP 162/100
[2022-09-19] MEDS: INSULIN LISPRO 100 UNITS/ML SQ PRN ×2 (06:31→12:03)
[2022-09-19 06:50] LABS: CALCIUM, TOTAL 9.1 mg/dL (8.8-10.5); CREATININE 1.61 mg/dL (0.60-1.30); MAGNESIUM 1.9 mg/dL (1.80-2.40); POTASSIUM 4.2 mmol/L (3.5-5.1)
[2022-09-19] MEDS: DOCUSATE SODIUM 100 MG CAPSULE PO SCH (07:55)
[2022-09-19] MEDS: SPIRONOLACTONE 25 MG TABLET PO SCH (07:55)
[2022-09-19] MEDS: ASPIRIN 81 MG CHEWABLE TABLET PO SCH (07:55)
[2022-09-19] MEDS: VANCOMYCIN 1GM/WATER(PEG/NADA) 200 ML IV SCH (07:55)
[2022-09-19] MEDS: METOPROLOL SUCCINATE 25 MG ER TABLET PO SCH (07:55)
[2022-09-19] MEDS: HEPARIN SODIUM,PORCINE 5,000 UNITS/ML VIAL SQ SCH (07:56)
[2022-09-19] MEDS: LOSARTAN POTASSIUM 25 MG TABLET PO SCH (07:56)
[2022-09-19] MEDS: FAMOTIDINE 20 MG TABLET PO SCH (07:56)
[2022-09-19 08:05] VITALS: BP 155/91
[2022-09-19] MEDS ORDERED: LOSA25TA2 PO (09:51)
[2022-09-19] MEDS ORDERED: CLIN300C58 PO (09:51)
[2022-09-19] MEDS ORDERED: CEPH-558 PO (09:51)
[2022-09-19] MEDS ORDERED: FURO20 PO (09:51)
[2022-09-19] MEDS ORDERED: ASPI81 PO (09:51)
[2022-09-19] MEDS ORDERED: METO25XL PO (09:51)
[2022-09-19] MEDS ORDERED: ATOR20TA65 PO (09:51)
[2022-09-19] MEDS ORDERED: SPIR-37 PO (09:51)
[2022-09-19] MEDS ORDERED: TRAM-559 PO (09:52)
[2022-09-19 11:35] VITALS: BP 150/105
[2022-09-20] MEDS ORDERED: FUROSEMIDE 20 MG TABLET PO SCH (09:00)
[2022-09-22 20:02] LABS: GLUCOMETER DEV NAME(LOC) 5N.1C; GLUCOSE,POINT OF CARE 227 MG/DL (70-110)
[2022-09-22 20:02] LABS: GLUCOMETER DEV NAME(LOC) 5N.1C; GLUCOSE,POINT OF CARE 158 MG/DL (70-110)
[2022-09-22 20:03] LABS: GLUCOMETER DEV NAME(LOC) 5N.1C; GLUCOSE,POINT OF CARE 161 MG/DL (70-110)
[2022-09-22 20:03] LABS: GLUCOMETER DEV NAME(LOC) 5N.1C; GLUCOSE,POINT OF CARE 142 MG/DL (70-110)
[2022-09-22 20:03] LABS: GLUCOMETER DEV NAME(LOC) 5N.1C; GLUCOSE,POINT OF CARE 126 MG/DL (70-110)
== END 2022-09-19 15:35 | disposition home or self-care (01) | DRG 194 ==
LOC: EMS 15:56 → 5S 18:02
PROVIDERS: ADMIT Internal Medicine; ATTEND Internal Medicine
DX: I13.0 Hypertensive heart and chronic kidney disease with heart failure and stage 1 through stage 4 chronic kidney disease, or unspecified chronic kidney disease (principal); I27.20 Pulmonary hypertension, unspecified; N17.9 Acute kidney failure, unspecified; I42.8 Other cardiomyopathies; I11.0 Hypertensive heart disease with heart failure; L03.115 Cellulitis of right lower limb; E11.22 Type 2 diabetes mellitus with diabetic chronic kidney disease; E11.40 Type 2 diabetes mellitus with diabetic neuropathy, unspecified; I50.23 Acute on chronic systolic (congestive) heart failure; E11.65 Type 2 diabetes mellitus with hyperglycemia; N18.9 Chronic kidney disease, unspecified; E87.6 Hypokalemia; Z20.822 Contact with and (suspected) exposure to COVID-19; E11.51 Type 2 diabetes mellitus with diabetic peripheral angiopathy without gangrene; E78.00 Pure hypercholesterolemia, unspecified; F17.210 Nicotine dependence, cigarettes, uncomplicated; K21.9 Gastro-esophageal reflux disease without esophagitis; Z79.899 Other long term (current) drug therapy; Z79.4 Long term (current) use of insulin; Z82.49 Family history of ischemic heart disease and other diseases of the circulatory system; Z91.14 Patient's other noncompliance with medication regimen
CPT/HCPCS: 71045; 71275; 80048; 80053; 80202; 81001; 81002; 82550; 82962; 83735; 83880; 84132; 84484; 85025; 85379; 93005; 93306; 93970; 99285; J1644; J1940; J3370; J3475; J7050; J7060; Q9967; 36415-L1; 36415-TC

== ENCOUNTER 2022-10-17 10:13 | Emergency (ER) | payer OTHER ==
[~2022-10-17] VITALS: Ht 177.8 cm; Wt 77.0 kg
[~2022-10-17 10:13] MED LIST changes: -AMLO-257 PO; +ASPI81 PO; -ATOR10TA PO; +ATOR20TA65 PO; -BENZ9GEL2 TP; -CEFA2IV IV; +CEPH-558 PO; +CLIN300C58 PO; -CLON0.1T2 PO; -D50SYG IVP; -DOCU-385 PO; -FAMO20 PO; +FURO20 PO; -LOSA-382 PO; +LOSA25TA2 PO; +METO25XL PO; -MULT-1239 PO; +SPIR-37 PO; -ZOLP-280 PO
[2022-10-17] MEDS ORDERED: GABA-1181 PO (11:07)
[2022-10-17] MEDS ORDERED: GABAPENTIN 300 MG CAPSULE PO ONE (11:15)
[2022-10-17] MEDS ORDERED: OxyCODONE HCL/ACETAMINOPHEN 5-325 MG TABLET PO ONE (11:15)
[2022-10-17 12:30] VITALS: BP 111/87
== END 2022-10-17 12:51 | disposition home or self-care (01) ==
LOC: EMS 10:18
DX: M79.673 Pain in unspecified foot (principal); G62.9 Polyneuropathy, unspecified; I11.0 Hypertensive heart disease with heart failure; I50.9 Heart failure, unspecified; E11.9 Type 2 diabetes mellitus without complications; F12.90 Cannabis use, unspecified, uncomplicated; F15.90 Other stimulant use, unspecified, uncomplicated; M79.643 Pain in unspecified hand
CPT/HCPCS: 99283

== ENCOUNTER 2022-11-07 13:04 | Emergency (ER) | payer OTHER ==
[~2022-11-07] VITALS: Ht 177.8 cm; Wt 72.7 kg
[~2022-11-07 13:04] MED LIST changes: +GABA-1181 PO
[2022-11-07 13:13] VITALS: BP 156/100
[2022-11-07 15:11] LABS: BASOPHILS % (AUTO) 0.3 % (0.0-2.0); EOSINOPHILS % (AUTO) 1.2 % (1.0-6.0); HEMATOCRIT 48.1 % (41-53); HEMOGLOBIN 15.3 g/dL (13.5-17.5); LYMPHOCYTES # (AUTO) 1.8 K/uL (1.0-4.8); MEAN CORPUSCULAR HEMOGLOBIN 26.6 pg (26.0-34.0); MEAN CORPUSCULAR HGB CONC 31.8 G/dL (31.0-37.0); MEAN CORPUSCULAR VOLUME 83 fL (80-100); MONOCYTES # (AUTO) 0.6 K/uL (0.1-1.0); MONOCYTES % (AUTO) 10.7 % (2.0-9.0); NEUTROPHILS # (AUTO) 3.4 K/uL (1.8-7.7); NEUTROPHILS % (AUTO) 56.8 % (40.0-70.0); PLATELET COUNT (AUTO) 274 K/uL (150-450); RED BLOOD CELL COUNT(AUTO) 5.77 MIL/uL (4.50-5.90); RED CELL DISTRIBUTION WIDTH 14.4 % (11.5-14.5)
[2022-11-07 15:23] LABS: CALCIUM, TOTAL 9.3 mg/dL (8.8-10.5); CREATININE 1.65 mg/dL (0.60-1.30); POTASSIUM 3.6 mmol/L (3.5-5.1)
[2022-11-07 15:47] LABS: ALBUMIN 2.7 g/dL (3.4-5.0); BILIRUBIN,TOTAL 1.4 mg/dL (0.1-1.0); TOTAL PROTEIN, SERUM 7.3 g/dL (6.4-8.2)
[2022-11-07] MEDS ORDERED: CefTRIAXone 1 GM/DEXTROSE 50 ML IV ONE (16:15)
== END 2022-11-07 17:28 | disposition home or self-care (01) ==
LOC: EMS 13:08
DX: L03.032 Cellulitis of left toe (principal); I11.0 Hypertensive heart disease with heart failure; I50.9 Heart failure, unspecified; E11.9 Type 2 diabetes mellitus without complications; F15.90 Other stimulant use, unspecified, uncomplicated
CPT/HCPCS: 99285; 96365; 71045; 80053; 82550; 83880; 84484; 85025; 36415; 93005; J0696

== ENCOUNTER 2022-12-22 10:34 | Emergency (ER) | payer OTHER ==
[~2022-12-22] VITALS: Ht 177.8 cm; Wt 75.0 kg
[~2022-12-22 10:34] MED LIST changes: -CEPH-558 PO; -CLIN300C58 PO; -TRAM-559 PO
[2022-12-22] MEDS ORDERED: GABAPENTIN 300 MG CAPSULE PO ONE (12:15)
[2022-12-22 12:30] LABS: BASOPHILS % (AUTO) 0.9 % (0.0-2.0); EOSINOPHILS % (AUTO) 0.9 % (1.0-6.0); HEMATOCRIT 45.6 % (41-53); HEMOGLOBIN 14.5 g/dL (13.5-17.5); LYMPHOCYTES # (AUTO) 1.8 K/uL (1.0-4.8); LYMPHOCYTES % (AUTO) 38.2 % (22.0-44.0); MEAN CORPUSCULAR HEMOGLOBIN 26.8 pg (26.0-34.0); MEAN CORPUSCULAR HGB CONC 31.9 G/dL (31.0-37.0); MEAN CORPUSCULAR VOLUME 84 fL (80-100); MONOCYTES # (AUTO) 0.6 K/uL (0.1-1.0); MONOCYTES % (AUTO) 12.6 % (2.0-9.0); NEUTROPHILS # (AUTO) 2.2 K/uL (1.8-7.7); NEUTROPHILS % (AUTO) 47.4 % (40.0-70.0); PLATELET COUNT (AUTO) 235 K/uL (150-450); RED BLOOD CELL COUNT(AUTO) 5.43 MIL/uL (4.50-5.90); RED CELL DISTRIBUTION WIDTH 14.8 % (11.5-14.5)
[2022-12-22 12:40] VITALS: BP 159/124
[2022-12-22 12:50] LABS: ANION GAP 6 mmol/L (8-16); CALCIUM, TOTAL 8.1 mg/dL (8.8-10.5); CARBON DIOXIDE 24 mmol/L (22-29); CHLORIDE 107 mmol/L (98-107); CREATININE 1.28 mg/dL (0.60-1.30); GLOMERULAR FILTR. RATE CALC > 60 mL/min (>60); GLUCOSE,RANDOM 137 mg/dL (70-110); POTASSIUM 3.9 mmol/L (3.5-5.1); SODIUM SERUM 137 mmol/L (136-145); UREA NITROGEN, BLOOD 14 mg/dL (7-18)
[2022-12-22 13:05] LABS: ALANINE AMINOTRANSFERASE 23 U/L (12-78); ALBUMIN 1.9 g/dL (3.4-5.0); ALKALINE PHOSPHATASE 119 U/L (46-116); ASPARTATE AMINOTRANSFERASE 27 U/L (15-37); BILIRUBIN,TOTAL 0.7 mg/dL (0.1-1.0); TOTAL PROTEIN, SERUM 6.2 g/dL (6.4-8.2)
[2022-12-22] MEDS ORDERED: GABA-1181 PO (13:57)
== END 2022-12-22 14:16 | disposition home or self-care (01) ==
LOC: EMS 10:39
DX: E11.40 Type 2 diabetes mellitus with diabetic neuropathy, unspecified (principal); I11.0 Hypertensive heart disease with heart failure; I50.9 Heart failure, unspecified; F15.90 Other stimulant use, unspecified, uncomplicated
CPT/HCPCS: 80053; 82962; 83605; 85025; 99284

== ENCOUNTER 2023-04-05 18:56 | Emergency (ER) | payer OTHER ==
[~2023-04-05] VITALS: Ht 177.8 cm; Wt 76.4 kg
[2023-04-05 18:59] VITALS: BP 162/120
[2023-04-05] MEDS ORDERED: ONDANSETRON HCL 4 MG TABLET PO ONE (20:15)
[2023-04-05] MEDS ORDERED: ASPI-1444 PO ×2 (20:23→21:40)
[2023-04-05 20:30] LABS: BASOPHILS % (AUTO) 0.3 % (0.0-2.0); EOSINOPHILS % (AUTO) 0.7 % (1.0-6.0); HEMATOCRIT 53.6 % (41-53); HEMOGLOBIN 17.4 g/dL (13.5-17.5); LYMPHOCYTES # (AUTO) 1.5 K/uL (1.0-4.8); LYMPHOCYTES % (AUTO) 21.4 % (22.0-44.0); MEAN CORPUSCULAR HEMOGLOBIN 27.7 pg (26.0-34.0); MEAN CORPUSCULAR HGB CONC 32.5 G/dL (31.0-37.0); MEAN CORPUSCULAR VOLUME 85 fL (80-100); MONOCYTES # (AUTO) 0.6 K/uL (0.1-1.0); MONOCYTES % (AUTO) 8.2 % (2.0-9.0); NEUTROPHILS # (AUTO) 4.8 K/uL (1.8-7.7); NEUTROPHILS % (AUTO) 69.4 % (40.0-70.0); PLATELET COUNT (AUTO) 244 K/uL (150-450); RED BLOOD CELL COUNT(AUTO) 6.28 MIL/uL (4.50-5.90); RED CELL DISTRIBUTION WIDTH 14.8 % (11.5-14.5)
[2023-04-05 20:57] LABS: ANION GAP 7 mmol/L (8-16); CALCIUM, TOTAL 9.3 mg/dL (8.8-10.5); CARBON DIOXIDE 28 mmol/L (22-29); CHLORIDE 103 mmol/L (98-107); CREATININE 1.57 mg/dL (0.60-1.30); GLOMERULAR FILTR. RATE CALC 57 mL/min (>60); GLUCOSE,RANDOM 190 mg/dL (70-110); POTASSIUM 4.2 mmol/L (3.5-5.1); SODIUM SERUM 138 mmol/L (136-145)
[2023-04-05 21:02] LABS: ALANINE AMINOTRANSFERASE 21 U/L (12-78); ALBUMIN 2.7 g/dL (3.4-5.0); ALKALINE PHOSPHATASE 160 U/L (46-116); ASPARTATE AMINOTRANSFERASE 23 U/L (15-37); BILIRUBIN,TOTAL 2.1 mg/dL (0.1-1.0); TOTAL PROTEIN, SERUM 7.4 g/dL (6.4-8.2)
[2023-04-05] MEDS ORDERED: GABA-1181 PO (21:40)
[2023-04-05] MEDS ORDERED: SPIR-37 PO (21:40)
[2023-04-05] MEDS ORDERED: METF-1211 PO (21:40)
[2023-04-05] MEDS ORDERED: FURO20 PO (21:40)
[2023-04-05] MEDS ORDERED: LOSA25TA2 PO (21:40)
[2023-04-05] MEDS ORDERED: ATOR20TA65 PO (21:40)
[2023-04-05] MEDS ORDERED: METO25XL PO (21:40)
== END 2023-04-05 22:05 | disposition home or self-care (01) ==
LOC: EMS 18:57
DX: T54.91XA Toxic effect of unspecified corrosive substance, accidental (unintentional), initial encounter (principal); I11.0 Hypertensive heart disease with heart failure; I50.9 Heart failure, unspecified; E11.9 Type 2 diabetes mellitus without complications; Z79.899 Other long term (current) drug therapy; N28.9 Disorder of kidney and ureter, unspecified; Y92.89 Other specified places as the place of occurrence of the external cause
CPT/HCPCS: 99283; 80053; 85025; 36415; G0480; Q0162

== ENCOUNTER 2023-08-15 19:46 | Inpatient (IN) | payer OTHER ==
[~2023-08-15] VITALS: Ht 170.2 cm; Wt 76.5 kg
[~2023-08-15 19:46] MED LIST changes: +ASPI-1444 PO; -ASPI81 PO; -GABA-1216 PO; +LOSA-417 PO; -LOSA25TA2 PO
[2023-08-15 20:06] LABS: GLUCOMETER DEV NAME(LOC) ER.6; GLUCOSE,POINT OF CARE 280 MG/DL (70-110)
[2023-08-15 20:17] LABS: BASOPHILS % (AUTO) 0.2 % (0.0-2.0); EOSINOPHILS % (AUTO) 0.7 % (1.0-6.0); HEMATOCRIT 51.9 % (41-53); HEMOGLOBIN 16.8 g/dL (13.5-17.5); LYMPHOCYTES # (AUTO) 1.2 K/uL (1.0-4.8); LYMPHOCYTES % (AUTO) 20.5 % (22.0-44.0); MEAN CORPUSCULAR HEMOGLOBIN 27.9 pg (26.0-34.0); MEAN CORPUSCULAR HGB CONC 32.4 G/dL (31.0-37.0); MEAN CORPUSCULAR VOLUME 86 fL (80-100); MONOCYTES # (AUTO) 0.6 K/uL (0.1-1.0); MONOCYTES % (AUTO) 10.5 % (2.0-9.0); NEUTROPHILS % (AUTO) 68.1 % (40.0-70.0); PLATELET COUNT (AUTO) 183 K/uL (150-450); RED BLOOD CELL COUNT(AUTO) 6.04 MIL/uL (4.50-5.90); WHITE BLOOD COUNT (AUTO) 5.8 K/uL (4.5-11.0)
[2023-08-15 20:31] LABS: ALCOHOL, BLOOD (SERUM) < 3 mg/dL (0-10)
[2023-08-15 20:36] LABS: LIPASE 483 U/L (16-77)
[2023-08-15 20:39] LABS: TROPONIN I-HIGH SENSITIVITY 51 ng/L (<76)
[2023-08-15] MEDS ORDERED: IOHEXOL 9 MG/ML 500 ML BOTTLE PO ONE (20:45)
[2023-08-15] MEDS ORDERED: ONDANSETRON HCL 4 MG/2 ML VIAL IVP ONE (21:15)
[2023-08-15] MEDS ORDERED: SODIUM CHLORIDE 0.9% 1,000 ML IV ONE (21:15)
[2023-08-15] MEDS ORDERED: MORPHINE SULFATE 4 MG/ML SYRINGE IVP ONE (21:15)
[2023-08-15 21:17] LABS: ANION GAP 9 mmol/L (8-16); CALCIUM, TOTAL 8.9 mg/dL (8.8-10.5); CARBON DIOXIDE 25 mmol/L (22-29); CHLORIDE 102 mmol/L (98-107); CREATININE 1.39 mg/dL (0.60-1.30); GLOMERULAR FILTR. RATE CALC > 60 mL/min (>60); GLUCOSE,RANDOM 244 mg/dL (70-110); POTASSIUM 3.7 mmol/L (3.5-5.1); SODIUM SERUM 136 mmol/L (136-145); UREA NITROGEN, BLOOD 21 mg/dL (7-18)
[2023-08-15 21:23] LABS: ALANINE AMINOTRANSFERASE 20 U/L (12-78); ALBUMIN 2.3 g/dL (3.4-5.0); ALKALINE PHOSPHATASE 119 U/L (46-116); ASPARTATE AMINOTRANSFERASE 23 U/L (15-37); BILIRUBIN,TOTAL 2.4 mg/dL (0.1-1.0); CHOL/HDL RATIO 2.6 (4.2-7.3); CHOLESTEROL 145 mg/dL (131-200); HDL CHOLESTEROL 55 mg/dL (40-60); LDL CHOL (CALC.) 80 mg/dL (0-130); TOTAL PROTEIN, SERUM 6.3 g/dL (6.4-8.2); TRIGLYCERIDES 52 mg/dL (15-150)
[2023-08-15] MEDS ORDERED: ACETAMINOPHEN 325 MG TABLET PO PRN (21:30)
[2023-08-15] MEDS ORDERED: DEXTROSE 50%-WATER 25 GM/50 ML SYRINGE IVP PRN (21:30)
[2023-08-15] MEDS ORDERED: SODIUM CHLORIDE 0.9% 100 ML ONE (21:33)
[2023-08-15] MEDS ORDERED: IOHEXOL 350 MG/ML 100 ML VIAL ONE (21:34)
[2023-08-15] MEDS: INSULIN LISPRO 100 UNITS/ML SQ PRN (22:01)
[2023-08-15] MEDS: SODIUM CHLORIDE 0.9% 1,000 ML IV SCH (22:02)
[2023-08-15 22:22] LABS: APPEARANCE,URINE CLEAR (CLEAR); BILIRUBIN,URINE NEGATIVE (NEGATIVE); COLOR,URINE LIGHT YELLOW (YELLOW); GLUCOSE, URINE (UA) 150-200 mg/dL (NEGATIVE); KETONES,URINE NEGATIVE (NEGATIVE); LEUKOCYTE ESTERASE ,URINE NEGATIVE (NEGATIVE); NITRATE,URINE NEGATIVE (NEGATIVE); OCCULT BLOOD,URINE TRACE (NEGATIVE); PROTEIN,URINE 100-200,SEE CONFIRM mg/dL (NEGATIVE); SPECIFIC GRAVITIY, URINE 1.015 (1.003-1.030)
[2023-08-15 22:27] LABS: AMPHET/METH SCREEN,URINE NEGATIVE (NEGATIVE); BARBITURATE SCREEN, URINE NEGATIVE (NEGATIVE); BENZODIAZEPINES SCREEN,URINE NEGATIVE (NEGATIVE); CANNABINOID SCREEN,URINE NEGATIVE (NEGATIVE); COCAINE SCREEN,URINE NEGATIVE (NEGATIVE); METHADONE SCREEN, URINE NEGATIVE (NEGATIVE); OPIATE SCREEN,URINE POSITIVE (NEGATIVE); PHENCYCLIDINE SCREEN,URINE NEGATIVE (NEGATIVE)
[2023-08-15 22:28] LABS: ALCOHOL, URINE DRUG SCREEN NEGATIVE (NEGATIVE); BACTERIA,URINE None Seen /HPF (None Seen); RBC,URINE 0-2 /HPF (0-2); SQUAMOUS EPITHELIAL CELL,UR Few /LPF (None Seen); SULFOSALICYLIC ACID,URINE 2+ (Negative); WBC,URINE None Seen /HPF (0-5)
[2023-08-16] VITALS (8 sets, daily range): BP systolic 143–166; BP diastolic 92–127; PULSE 76–99; RESP 17–20; TEMP 97.5–98.4
[2023-08-16 07:18] LABS: BASOPHILS % (AUTO) 0.2 % (0.0-2.0); EOSINOPHILS % (AUTO) 0.8 % (1.0-6.0); HEMATOCRIT 49.4 % (41-53); HEMOGLOBIN 16.2 g/dL (13.5-17.5); LYMPHOCYTES # (AUTO) 1.6 K/uL (1.0-4.8); LYMPHOCYTES % (AUTO) 28.9 % (22.0-44.0); MEAN CORPUSCULAR HEMOGLOBIN 28.2 pg (26.0-34.0); MEAN CORPUSCULAR HGB CONC 32.7 G/dL (31.0-37.0); MEAN CORPUSCULAR VOLUME 86 fL (80-100); MONOCYTES # (AUTO) 0.6 K/uL (0.1-1.0); MONOCYTES % (AUTO) 11.3 % (2.0-9.0); NEUTROPHILS # (AUTO) 3.3 K/uL (1.8-7.7); NEUTROPHILS % (AUTO) 58.8 % (40.0-70.0); PLATELET COUNT (AUTO) 188 K/uL (150-450); RED BLOOD CELL COUNT(AUTO) 5.74 MIL/uL (4.50-5.90); RED CELL DISTRIBUTION WIDTH 14.8 % (11.5-14.5); WHITE BLOOD COUNT (AUTO) 5.7 K/uL (4.5-11.0)
[2023-08-16 07:25] LABS: ANION GAP 9 mmol/L (8-16); CALCIUM, TOTAL 8.4 mg/dL (8.8-10.5); CARBON DIOXIDE 25 mmol/L (22-29); CHLORIDE 102 mmol/L (98-107); CREATININE 1.11 mg/dL (0.60-1.30); GLOMERULAR FILTR. RATE CALC > 60 mL/min (>60); GLUCOSE,RANDOM 110 mg/dL (70-110); POTASSIUM 3.9 mmol/L (3.5-5.1); SODIUM SERUM 136 mmol/L (136-145); UREA NITROGEN, BLOOD 17 mg/dL (7-18)
[2023-08-16] MEDS: HEPARIN SODIUM,PORCINE 5,000 UNITS/ML VIAL SQ SCH ×4 (08:05→23:43)
[2023-08-16 08:06] LABS: GLUCOMETER DEV NAME(LOC) 5S.1B; GLUCOSE,POINT OF CARE 117 MG/DL (70-110)
[2023-08-16] MEDS: ONDANSETRON HCL 4 MG/2 ML VIAL IVP PRN (08:09)
[2023-08-16] MEDS: HYDROmorphone HCL 2 MG/ML SYRINGE IVP PRN ×3 (08:10→22:01)
[2023-08-16] MEDS ORDERED: LOSARTAN POTASSIUM 25 MG TABLET PO SCH (11:15)
[2023-08-16] MEDS: METOPROLOL SUCCINATE 25 MG ER TABLET PO SCH (11:21)
[2023-08-16 17:17] LABS: GLUCOMETER DEV NAME(LOC) 5S.1B; GLUCOSE,POINT OF CARE 125 MG/DL (70-110)
[2023-08-16] MEDS: INSULIN LISPRO 100 UNITS/ML SQ PRN ×2 (18:01→20:39)
[2023-08-16] MEDS: SODIUM CHLORIDE 0.9% 1,000 ML IV SCH (18:03)
[2023-08-16] MEDS: LOSARTAN POTASSIUM 25 MG TABLET PO SCH (20:20)
[2023-08-16 21:43] LABS: GLUCOMETER DEV NAME(LOC) 5S.1B; GLUCOSE,POINT OF CARE 250 MG/DL (70-110)
[2023-08-16 23:13] LABS: GLUCOMETER DEV NAME(LOC) 5N.1C; GLUCOSE,POINT OF CARE 211 MG/DL (70-110)
[2023-08-17 04:56] VITALS: BP 153/102; PULSE 79; RESP 17; TEMP 97.8
[2023-08-17] MEDS: SODIUM CHLORIDE 0.9% 1,000 ML IV SCH (05:41)
[2023-08-17 06:07] LABS: GLUCOMETER DEV NAME(LOC) 5S.1B; GLUCOSE,POINT OF CARE 82 MG/DL (70-110)
[2023-08-17] MEDS: METOPROLOL SUCCINATE 25 MG ER TABLET PO SCH (08:18)
[2023-08-17] MEDS: LOSARTAN POTASSIUM 25 MG TABLET PO SCH (08:18)
[2023-08-17] MEDS: HEPARIN SODIUM,PORCINE 5,000 UNITS/ML VIAL SQ SCH ×3 (08:19→23:25)
[2023-08-17 08:20] VITALS: BP 148/111; PULSE 88; RESP 19; TEMP 98.9
[2023-08-17] MEDS ORDERED: MAGNESIUM OXIDE 400 MG TABLET PO PRN (10:30)
[2023-08-17] MEDS ORDERED: MAGNESIUM SULFATE 4 GM/WATER 100 ML IV PRN (10:30)
[2023-08-17] MEDS ORDERED: MAGNESIUM SULFATE 2 GM/WATER 50 ML IV PRN (10:30)
[2023-08-17] MEDS: INSULIN LISPRO 100 UNITS/ML SQ PRN ×3 (11:35→20:07)
[2023-08-17 11:39] LABS: ALBUMIN 2.2 g/dL (3.4-5.0); MAGNESIUM 1.7 mg/dL (1.80-2.40)
[2023-08-17 11:45] VITALS: BP 115/118; PULSE 78; RESP 18; TEMP 98.4
[2023-08-17] MEDS ORDERED: MAGNESIUM OXIDE 400 MG TABLET PO ONE (13:30)
[2023-08-17] MEDS ORDERED: FUROSEMIDE 20 MG/2 ML VIAL IVP ONE (13:30)
[2023-08-17 15:00] VITALS: BP 129/100; PULSE 80; RESP 18; TEMP 98.5
[2023-08-17 19:53] VITALS: BP 139/88; PULSE 80; RESP 18; TEMP 98.7
[2023-08-17] MEDS: ONDANSETRON HCL 4 MG/2 ML VIAL IVP PRN (19:59)
[2023-08-17] MEDS: LOSARTAN POTASSIUM 50 MG TABLET PO SCH (20:00)
[2023-08-17 21:27] LABS: BASOPHILS % (AUTO) 0.1 % (0.0-2.0); EOSINOPHILS % (AUTO) 0.5 % (1.0-6.0); HEMATOCRIT 54.7 % (41-53); HEMOGLOBIN 17.4 g/dL (13.5-17.5); LYMPHOCYTES # (AUTO) 0.9 K/uL (1.0-4.8); LYMPHOCYTES % (AUTO) 18.6 % (22.0-44.0); MEAN CORPUSCULAR HEMOGLOBIN 27.9 pg (26.0-34.0); MEAN CORPUSCULAR HGB CONC 31.9 G/dL (31.0-37.0); MEAN CORPUSCULAR VOLUME 87 fL (80-100); MONOCYTES # (AUTO) 0.4 K/uL (0.1-1.0); MONOCYTES % (AUTO) 8.3 % (2.0-9.0); NEUTROPHILS # (AUTO) 3.6 K/uL (1.8-7.7); NEUTROPHILS % (AUTO) 72.5 % (40.0-70.0); PLATELET COUNT (AUTO) 215 K/uL (150-450); RED BLOOD CELL COUNT(AUTO) 6.26 MIL/uL (4.50-5.90); RED CELL DISTRIBUTION WIDTH 14.7 % (11.5-14.5)
[2023-08-17 21:29] LABS: ANION GAP 7 mmol/L (8-16); CALCIUM, TOTAL 9.1 mg/dL (8.8-10.5); CARBON DIOXIDE 27 mmol/L (22-29); CHLORIDE 104 mmol/L (98-107); CREATININE 1.37 mg/dL (0.60-1.30); GLOMERULAR FILTR. RATE CALC > 60 mL/min (>60); GLUCOSE,RANDOM 143 mg/dL (70-110); POTASSIUM 4.2 mmol/L (3.5-5.1); SODIUM SERUM 138 mmol/L (136-145); UREA NITROGEN, BLOOD 14 mg/dL (7-18)
[2023-08-17 21:30] LABS: LIPASE 194 U/L (16-77)
[2023-08-18 00:05] VITALS: BP 139/102; PULSE 84; RESP 18; TEMP 98.9
[2023-08-18] MEDS: ONDANSETRON HCL 4 MG/2 ML VIAL IVP PRN (03:07)
[2023-08-18 04:11] VITALS: BP 188/134; PULSE 81; RESP 19; TEMP 98.1
[2023-08-18] MEDS: HYDROmorphone HCL 2 MG/ML SYRINGE IVP PRN ×2 (06:13→13:16)
[2023-08-18 07:10] VITALS: BP 187/126; PULSE 92; RESP 18; TEMP 97.8
[2023-08-18] MEDS: LOSARTAN POTASSIUM 50 MG TABLET PO SCH ×2 (08:55→20:18)
[2023-08-18] MEDS: HEPARIN SODIUM,PORCINE 5,000 UNITS/ML VIAL SQ SCH ×2 (08:55→15:52)
[2023-08-18] MEDS: METOPROLOL SUCCINATE 25 MG ER TABLET PO SCH (08:55)
[2023-08-18] MEDS: FUROSEMIDE 20 MG/2 ML VIAL IVP SCH (08:55)
[2023-08-18 09:11] LABS: GLUCOMETER DEV NAME(LOC) 5S.1B; GLUCOSE,POINT OF CARE 193 MG/DL (70-110)
[2023-08-18 09:11] LABS: GLUCOMETER DEV NAME(LOC) 5N.2C; GLUCOSE,POINT OF CARE 155 MG/DL (70-110)
[2023-08-18 09:11] LABS: GLUCOMETER DEV NAME(LOC) 5N.2C; GLUCOSE,POINT OF CARE 212 MG/DL (70-110)
[2023-08-18 11:41] LABS: GLUCOMETER DEV NAME(LOC) 5N.1C; GLUCOSE,POINT OF CARE 202 MG/DL (70-110)
[2023-08-18 11:42] VITALS: BP 146/108; PULSE 97; RESP 18; TEMP 98.3
[2023-08-18] MEDS: INSULIN LISPRO 100 UNITS/ML SQ PRN ×3 (12:29→20:23)
[2023-08-18 15:26] VITALS: BP 138/88; PULSE 94; RESP 18; TEMP 98
[2023-08-18] MEDS ORDERED: AmLODIPine BESYLATE 5 MG TABLET PO SCH (15:30)
[2023-08-18 18:26] LABS: GLUCOMETER DEV NAME(LOC) 5N.2C; GLUCOSE,POINT OF CARE 227 MG/DL (70-110)
[2023-08-18 20:26] LABS: GLUCOMETER DEV NAME(LOC) 5S.1B; GLUCOSE,POINT OF CARE 206 MG/DL (70-110)
[2023-08-18 20:26] LABS: GLUCOMETER DEV NAME(LOC) 5S.1B; GLUCOSE,POINT OF CARE 210 MG/DL (70-110)
[2023-08-18 21:20] VITALS: BP 148/110; PULSE 86; RESP 19; TEMP 97.8
[2023-08-19] MEDS: HEPARIN SODIUM,PORCINE 5,000 UNITS/ML VIAL SQ SCH ×3 (00:07→16:10)
[2023-08-19 00:44] VITALS: BP 145/111; PULSE 85; RESP 18; TEMP 97.8
[2023-08-19 04:19] VITALS: BP 149/117; PULSE 95; RESP 18; TEMP 98.2
[2023-08-19] MEDS: HYDROmorphone HCL 2 MG/ML SYRINGE IVP PRN ×2 (05:00→12:08)
[2023-08-19 07:48] VITALS: BP 170/120; PULSE 88; RESP 19; TEMP 98.1
[2023-08-19 08:39] LABS: BASOPHILS % (AUTO) 0.4 % (0.0-2.0); EOSINOPHILS % (AUTO) 0.3 % (1.0-6.0); HEMOGLOBIN 17.8 g/dL (13.5-17.5); LYMPHOCYTES # (AUTO) 1.5 K/uL (1.0-4.8); LYMPHOCYTES % (AUTO) 23.2 % (22.0-44.0); MEAN CORPUSCULAR VOLUME 88 fL (80-100); MONOCYTES # (AUTO) 0.6 K/uL (0.1-1.0); NEUTROPHILS # (AUTO) 4.3 K/uL (1.8-7.7); NEUTROPHILS % (AUTO) 67.1 % (40.0-70.0); PLATELET COUNT (AUTO) 209 K/uL (150-450); RED BLOOD CELL COUNT(AUTO) 6.37 MIL/uL (4.50-5.90); RED CELL DISTRIBUTION WIDTH 15.2 % (11.5-14.5); WHITE BLOOD COUNT (AUTO) 6.4 K/uL (4.5-11.0)
[2023-08-19 08:40] LABS: ANION GAP 13 mmol/L (8-16); CALCIUM, TOTAL 9.4 mg/dL (8.8-10.5); CARBON DIOXIDE 23 mmol/L (22-29); CHLORIDE 101 mmol/L (98-107); CREATININE 1.49 mg/dL (0.60-1.30); GLOMERULAR FILTR. RATE CALC > 60 mL/min (>60); GLUCOSE,RANDOM 91 mg/dL (70-110); POTASSIUM 4.6 mmol/L (3.5-5.1); SODIUM SERUM 137 mmol/L (136-145); UREA NITROGEN, BLOOD 15 mg/dL (7-18)
[2023-08-19 08:45] LABS: HEMATOCRIT 55.8 % (41-53)
[2023-08-19] MEDS: METOPROLOL SUCCINATE 25 MG ER TABLET PO SCH (09:05)
[2023-08-19] MEDS: LOSARTAN POTASSIUM 50 MG TABLET PO SCH ×2 (09:05→21:04)
[2023-08-19] MEDS: FUROSEMIDE 20 MG/2 ML VIAL IVP SCH (09:05)
[2023-08-19] MEDS: AmLODIPine BESYLATE 5 MG TABLET PO SCH (09:06)
[2023-08-19] MEDS: ONDANSETRON HCL 4 MG/2 ML VIAL IVP PRN (09:07)
[2023-08-19] MEDS ORDERED: METOPROLOL SUCCINATE 25 MG ER TABLET PO ONE (11:00)
[2023-08-19 11:34] VITALS: BP 162/117; PULSE 91; RESP 18; TEMP 98.4
[2023-08-19 11:57] LABS: GLUCOMETER DEV NAME(LOC) 5N.2C; GLUCOSE,POINT OF CARE 136 MG/DL (70-110)
[2023-08-19] MEDS: CloNIDine HCL 0.1 MG TABLET PO PRN (11:58)
[2023-08-19] MEDS: INSULIN LISPRO 100 UNITS/ML SQ PRN ×3 (12:05→21:05)
[2023-08-19] MEDS ORDERED: MEBROFENIN TC99M/MCL ISOTOPE 1 EA INJ INJ ONE (13:10)
[2023-08-19 16:02] VITALS: BP 137/92; PULSE 96; RESP 18; TEMP 99.5
[2023-08-19 20:02] VITALS: BP 123/84; PULSE 79; RESP 21; TEMP 97.5
[2023-08-19 20:06] LABS: GLUCOMETER DEV NAME(LOC) 5N.2C; GLUCOSE,POINT OF CARE 194 MG/DL (70-110)
[2023-08-20] VITALS (8 sets, daily range): BP systolic 122–169; BP diastolic 84–110; PULSE 70–80; RESP 17–20; TEMP 97.5–99
[2023-08-20] MEDS: HYDROmorphone HCL 2 MG/ML SYRINGE IVP PRN ×2 (00:21→21:04)
[2023-08-20] MEDS: HEPARIN SODIUM,PORCINE 5,000 UNITS/ML VIAL SQ SCH ×3 (00:22→16:23)
[2023-08-20 07:03] LABS: GLUCOMETER DEV NAME(LOC) 5N.1C; GLUCOSE,POINT OF CARE 301 MG/DL (70-110)
[2023-08-20 07:03] LABS: GLUCOMETER DEV NAME(LOC) 5N.1C; GLUCOSE,POINT OF CARE 105 MG/DL (70-110)
[2023-08-20 07:22] LABS: GLUCOMETER DEV NAME(LOC) 5N.2C; GLUCOSE,POINT OF CARE 264 MG/DL (70-110)
[2023-08-20] MEDS: LOSARTAN POTASSIUM 50 MG TABLET PO SCH ×2 (08:52→21:03)
[2023-08-20] MEDS: FUROSEMIDE 20 MG/2 ML VIAL IVP SCH (08:52)
[2023-08-20] MEDS: AmLODIPine BESYLATE 5 MG TABLET PO SCH (08:52)
[2023-08-20] MEDS: METOPROLOL SUCCINATE 50 MG ER TABLET PO SCH (08:52)
[2023-08-20] MEDS ORDERED: LOSA-382 PO (10:36)
[2023-08-20] MEDS ORDERED: AMLO-258 PO (10:36)
[2023-08-20] MEDS ORDERED: METO-391 PO (10:36)
[2023-08-20] MEDS: INSULIN LISPRO 100 UNITS/ML SQ PRN ×2 (11:52→17:39)
[2023-08-20] MEDS: GABAPENTIN 300 MG CAPSULE PO SCH ×2 (16:23→21:04)
[2023-08-20] MEDS: ONDANSETRON HCL 4 MG/2 ML VIAL IVP PRN (19:35)
[2023-08-20 19:52] LABS: GLUCOMETER DEV NAME(LOC) 5N.1C; GLUCOSE,POINT OF CARE 190 MG/DL (70-110)
[2023-08-20 19:52] LABS: GLUCOMETER DEV NAME(LOC) 5N.1C; GLUCOSE,POINT OF CARE 236 MG/DL (70-110)
[2023-08-20] MEDS: CloNIDine HCL 0.1 MG TABLET PO PRN (21:08)
[2023-08-21] MEDS: HEPARIN SODIUM,PORCINE 5,000 UNITS/ML VIAL SQ SCH ×2 (00:57→08:23)
[2023-08-21] MEDS: HYDROmorphone HCL 2 MG/ML SYRINGE IVP PRN ×2 (04:25→08:59)
[2023-08-21 04:35] VITALS: BP 142/90; PULSE 86; RESP 18; TEMP 98.8
[2023-08-21] MEDS: INSULIN LISPRO 100 UNITS/ML SQ PRN ×2 (06:13→11:51)
[2023-08-21 06:46] LABS: GLUCOMETER DEV NAME(LOC) 5N.1C; GLUCOSE,POINT OF CARE 133 MG/DL (70-110)
[2023-08-21] MEDS: LOSARTAN POTASSIUM 50 MG TABLET PO SCH (08:23)
[2023-08-21] MEDS: AmLODIPine BESYLATE 5 MG TABLET PO SCH (08:23)
[2023-08-21] MEDS: FUROSEMIDE 20 MG/2 ML VIAL IVP SCH (08:24)
[2023-08-21 08:50] VITALS: BP 115/68; PULSE 77; RESP 18; TEMP 98.1
[2023-08-21] MEDS: METOPROLOL SUCCINATE 50 MG ER TABLET PO SCH (09:00)
[2023-08-21 11:36] LABS: GLUCOMETER DEV NAME(LOC) 6N.1B; GLUCOSE,POINT OF CARE 141 MG/DL (70-110)
[2023-08-22 00:21] LABS: GLUCOMETER DEV NAME(LOC) 6S.2; GLUCOSE,POINT OF CARE 210 MG/DL (70-110)
== END 2023-08-21 15:05 | disposition home or self-care (01) | DRG 282 ==
LOC: EMS 19:48 → 5S 22:49 → 6S 08-20 22:30 → 6N 08-20 22:40
PROVIDERS: ADMIT Internal Medicine; ATTEND Internal Medicine
DX: K85.90 Acute pancreatitis without necrosis or infection, unspecified (principal); I50.23 Acute on chronic systolic (congestive) heart failure; E44.0 Moderate protein-calorie malnutrition; E11.22 Type 2 diabetes mellitus with diabetic chronic kidney disease; I27.20 Pulmonary hypertension, unspecified; K82.8 Other specified diseases of gallbladder; E11.65 Type 2 diabetes mellitus with hyperglycemia; I13.0 Hypertensive heart and chronic kidney disease with heart failure and stage 1 through stage 4 chronic kidney disease, or unspecified chronic kidney disease; E11.40 Type 2 diabetes mellitus with diabetic neuropathy, unspecified; N18.30 Chronic kidney disease, stage 3 unspecified; K86.1 Other chronic pancreatitis; F11.90 Opioid use, unspecified, uncomplicated; Z68.26 Body mass index [BMI] 26.0-26.9, adult; Z82.49 Family history of ischemic heart disease and other diseases of the circulatory system; Z79.82 Long term (current) use of aspirin; Z79.899 Other long term (current) drug therapy
CPT/HCPCS: 71045; 74177; 76705; 78226; 80048; 80053; 80061; 80307; 81001; 81002; 82040; 82962; 83690; 83735; 83880; 84484; 85025; 93005; 99285; A9537; G0480; J1170; J1644; J1815; J1940; J2270; J2405; J3475; J7030; J7050; Q9967; 36415-L1; 36415-TC

== ENCOUNTER 2023-11-26 12:02 | Emergency (ER) | payer OTHER ==
[~2023-11-26] VITALS: Ht 177.8 cm; Wt 75.0 kg
[~2023-11-26 12:02] MED LIST changes: -ACET-2247 PO; -ACID1TAB13 PO; +AMLO-258 PO; -LOSA-417 PO; +METO-391 PO; -METO25XL PO; -SPIR-37 PO
[2023-11-26 12:10] VITALS: TEMP 97.6
[2023-11-26 12:43] LABS: COVID AG,FIA SOURCE NASAL SWAB
[2023-11-26 12:44] LABS: BASOPHILS % (AUTO) 0.4 % (0.0-2.0); EOSINOPHILS % (AUTO) 0.4 % (1.0-6.0); HEMATOCRIT 53.5 % (41-53); HEMOGLOBIN 17.9 g/dL (13.5-17.5); LYMPHOCYTES # (AUTO) 1.1 K/uL (1.0-4.8); LYMPHOCYTES % (AUTO) 13.6 % (22.0-44.0); MEAN CORPUSCULAR HEMOGLOBIN 29.1 pg (26.0-34.0); MEAN CORPUSCULAR HGB CONC 33.4 G/dL (31.0-37.0); MEAN CORPUSCULAR VOLUME 87 fL (80-100); MONOCYTES # (AUTO) 0.8 K/uL (0.1-1.0); MONOCYTES % (AUTO) 10.3 % (2.0-9.0); NEUTROPHILS # (AUTO) 6.2 K/uL (1.8-7.7); NEUTROPHILS % (AUTO) 75.3 % (40.0-70.0); PLATELET COUNT (AUTO) 246 K/uL (150-450); RED BLOOD CELL COUNT(AUTO) 6.14 MIL/uL (4.50-5.90); RED CELL DISTRIBUTION WIDTH 14.3 % (11.5-14.5); WHITE BLOOD COUNT (AUTO) 8.2 K/uL (4.5-11.0)
[2023-11-26 12:55] LABS: ANION GAP 8 mmol/L (8-16); CALCIUM, TOTAL 9.5 mg/dL (8.8-10.5); CARBON DIOXIDE 27 mmol/L (22-29); CHLORIDE 99 mmol/L (98-107); CREATININE 1.37 mg/dL (0.60-1.30); GLOMERULAR FILTR. RATE CALC > 60 mL/min (>60); GLUCOSE,RANDOM 245 mg/dL (70-110); POTASSIUM 4.2 mmol/L (3.5-5.1); SODIUM SERUM 134 mmol/L (136-145); UREA NITROGEN, BLOOD 21 mg/dL (7-18)
[2023-11-26 13:02] LABS: TROPONIN I-HIGH SENSITIVITY 34 ng/L (<76)
[2023-11-26 13:15] LABS: SARS-COV2 (COVID) ANTIGEN,FIA Negative (Negative)
[2023-11-26 13:16] LABS: INFLUENZA TYPE A NEGATIVE FOR TYPE A (NEGATIVE); INFLUENZA TYPE B NEGATIVE FOR TYPE B (NEGATIVE)
[2023-11-26 13:18] LABS: B-TYPE NATRIURETIC PEPTIDE 483 pg/mL (0-100)
[2023-11-26 13:21] LABS: ALANINE AMINOTRANSFERASE 29 U/L (12-78); ALBUMIN 2.7 g/dL (3.4-5.0); ALKALINE PHOSPHATASE 148 U/L (46-116); ASPARTATE AMINOTRANSFERASE 34 U/L (15-37); BILIRUBIN,TOTAL 1.7 mg/dL (0.1-1.0); CREATINE KINASE, TOTAL ONLY 120 U/L (39-308); TOTAL PROTEIN, SERUM 7.3 g/dL (6.4-8.2)
[2023-11-26] MEDS ORDERED: FUROSEMIDE 20 MG/2 ML VIAL IVP ONE (13:30)
[2023-11-26 13:33] VITALS: BP 145/89; PULSE 78; RESP 16
== END 2023-11-26 13:56 | disposition home or self-care (01) ==
LOC: EMS 12:02
DX: R06.02 Shortness of breath (principal); E11.9 Type 2 diabetes mellitus without complications; F15.90 Other stimulant use, unspecified, uncomplicated; I11.0 Hypertensive heart disease with heart failure; I50.9 Heart failure, unspecified; Z20.822 Contact with and (suspected) exposure to COVID-19
CPT/HCPCS: 99285; 96374; 71045; 87426; 80053; 82550; 82962; 83880; 84484; 85025; 87804; 36415; 93005; J1940

== ENCOUNTER 2024-04-20 06:12 | Emergency (ER) | payer OTHER ==
[~2024-04-20] VITALS: Ht 177.8 cm; Wt 84.0 kg
[~2024-04-20 06:12] MED LIST changes: -AMLO-258 PO; +BUME1TAB50 PO; -FURO20 PO; +LOSA-381 PO; -METF-1211 PO
[2024-04-20 06:19] VITALS: BP 116/73; PULSE 83; RESP 16; TEMP 97.5
[2024-04-20 06:41] LABS: GLUCOMETER DEV NAME(LOC) ERT.5; GLUCOSE,POINT OF CARE 177 MG/DL (70-110)
[2024-04-20 07:19] LABS: BASOPHILS % (AUTO) 0.9 % (0.0-2.0); EOSINOPHILS % (AUTO) 1.2 % (1.0-6.0); HEMATOCRIT 43.9 % (41-53); HEMOGLOBIN 14.1 g/dL (13.5-17.5); LYMPHOCYTES % (AUTO) 30.2 % (22.0-44.0); MEAN CORPUSCULAR HEMOGLOBIN 27.4 pg (26.0-34.0); MEAN CORPUSCULAR HGB CONC 32.2 G/dL (31.0-37.0); MEAN CORPUSCULAR VOLUME 85 fL (80-100); MONOCYTES # (AUTO) 0.7 K/uL (0.1-1.0); MONOCYTES % (AUTO) 11.1 % (2.0-9.0); NEUTROPHILS # (AUTO) 3.7 K/uL (1.8-7.7); NEUTROPHILS % (AUTO) 56.6 % (40.0-70.0); PLATELET COUNT (AUTO) 198 K/uL (150-450); RED BLOOD CELL COUNT(AUTO) 5.16 MIL/uL (4.50-5.90); RED CELL DISTRIBUTION WIDTH 16.2 % (11.5-14.5); WHITE BLOOD COUNT (AUTO) 6.5 K/uL (4.5-11.0)
[2024-04-20 07:35] LABS: CALCIUM, TOTAL 8.5 mg/dL (8.8-10.5); CREATININE 1.63 mg/dL (0.60-1.30); POTASSIUM 3.5 mmol/L (3.5-5.1)
[2024-04-20] MEDS ORDERED: METF-81 PO (08:07)
[2024-04-20] MEDS ORDERED: ASPI-1444 PO (08:07)
[2024-04-20] MEDS ORDERED: ATOR20TA65 PO (08:07)
== END 2024-04-20 08:33 | disposition home or self-care (01) ==
LOC: EMS 06:13
DX: S90.422A Blister (nonthermal), left great toe, initial encounter (principal); I12.9 Hypertensive chronic kidney disease with stage 1 through stage 4 chronic kidney disease, or unspecified chronic kidney disease; E11.22 Type 2 diabetes mellitus with diabetic chronic kidney disease; N18.9 Chronic kidney disease, unspecified; F15.10 Other stimulant abuse, uncomplicated; X58.XXXA Exposure to other specified factors, initial encounter; Y93.89 Activity, other specified; Y92.89 Other specified places as the place of occurrence of the external cause; Y99.8 Other external cause status
CPT/HCPCS: 80048; 82962; 85025; 99283

== ENCOUNTER 2024-04-23 19:53 | Emergency (ER) | payer OTHER ==
[~2024-04-23] VITALS: Ht 180.3 cm; Wt 84.1 kg
[~2024-04-23 19:53] MED LIST changes: +METF-81 PO
[2024-04-23 20:20] LABS: GLUCOMETER DEV NAME(LOC) ERT.5; GLUCOSE,POINT OF CARE 181 MG/DL (70-110)
[2024-04-23 20:32] LABS: BASOPHILS % (AUTO) 0.3 % (0.0-2.0); EOSINOPHILS % (AUTO) 0.6 % (1.0-6.0); HEMOGLOBIN 15.9 g/dL (13.5-17.5); LYMPHOCYTES # (AUTO) 0.9 K/uL (1.0-4.8); LYMPHOCYTES % (AUTO) 13.8 % (22.0-44.0); MEAN CORPUSCULAR HEMOGLOBIN 27.1 pg (26.0-34.0); MEAN CORPUSCULAR HGB CONC 31.8 G/dL (31.0-37.0); MEAN CORPUSCULAR VOLUME 85 fL (80-100); MONOCYTES # (AUTO) 0.5 K/uL (0.1-1.0); MONOCYTES % (AUTO) 7.6 % (2.0-9.0); NEUTROPHILS # (AUTO) 5.3 K/uL (1.8-7.7); NEUTROPHILS % (AUTO) 77.7 % (40.0-70.0); PLATELET COUNT (AUTO) 207 K/uL (150-450); RED BLOOD CELL COUNT(AUTO) 5.88 MIL/uL (4.50-5.90); RED CELL DISTRIBUTION WIDTH 16.6 % (11.5-14.5); WHITE BLOOD COUNT (AUTO) 6.8 K/uL (4.5-11.0)
[2024-04-23 20:40] LABS: ANION GAP 11 mmol/L (8-16); CALCIUM, TOTAL 9.4 mg/dL (8.8-10.5); CARBON DIOXIDE 24 mmol/L (22-29); CHLORIDE 104 mmol/L (98-107); CREATININE 1.46 mg/dL (0.60-1.30); GLOMERULAR FILTR. RATE CALC > 60 mL/min (>60); GLUCOSE,RANDOM 174 mg/dL (70-110); POTASSIUM 3.4 mmol/L (3.5-5.1); SODIUM SERUM 139 mmol/L (136-145); UREA NITROGEN, BLOOD 21 mg/dL (7-18)
[2024-04-23 20:46] LABS: ALANINE AMINOTRANSFERASE 44 U/L (12-78); ALBUMIN 2.5 g/dL (3.4-5.0); ALKALINE PHOSPHATASE 180 U/L (46-116); ASPARTATE AMINOTRANSFERASE 29 U/L (15-37); BILIRUBIN,TOTAL 2.4 mg/dL (0.1-1.0); TOTAL PROTEIN, SERUM 7.2 g/dL (6.4-8.2)
[2024-04-23] MEDS: ONDANSETRON HCL 4 MG TABLET PO ONE (21:35)
[2024-04-23] MEDS ORDERED: ONDA-104 PO (22:56)
[2024-04-23] MEDS: KETOROLAC TROMETHAMINE 30 MG/ML VIAL IVP ONE (23:32)
[2024-04-23] MEDS: SODIUM CHLORIDE 0.9% 1,000 ML IV ONE (23:32)
[2024-04-23] MEDS: ONDANSETRON HCL 4 MG/2 ML VIAL IVP ONE (23:33)
[2024-04-24 01:21] VITALS: BP 138/90; PULSE 86; RESP 16; TEMP 98.9
== END 2024-04-24 03:14 | disposition home or self-care (01) ==
LOC: EMS 19:53
DX: R11.2 Nausea with vomiting, unspecified (principal); R10.84 Generalized abdominal pain; I11.0 Hypertensive heart disease with heart failure; I50.9 Heart failure, unspecified; E11.9 Type 2 diabetes mellitus without complications; F15.10 Other stimulant abuse, uncomplicated; Z79.4 Long term (current) use of insulin
CPT/HCPCS: 99284; 96374; 71045; 96361; 96375; 80053; 82962; 85025; 36415; J1885; J2405; Q0162; J7030

== ENCOUNTER 2024-06-24 15:51 | Emergency (ER) | payer OTHER ==
[~2024-06-24] VITALS: Ht 175.3 cm; Wt 72.7 kg
[~2024-06-24 15:51] MED LIST changes: +ONDA-104 PO
[2024-06-24] MEDS ORDERED: GLIM1TAB56 PO (16:00)
[2024-06-24] MEDS ORDERED: METO100T14 PO (16:00)
[2024-06-24] MEDS ORDERED: EMPA10TA3 PO (16:00)
[2024-06-24 16:02] VITALS: TEMP 98.3
[2024-06-24] MEDS ORDERED: GABA-1181 PO (18:37)
[2024-06-24] MEDS ORDERED: ATOR-2 PO (18:40)
[2024-06-24] MEDS: GABAPENTIN 300 MG CAPSULE PO ONE (18:42)
[2024-06-24 18:53] VITALS: BP 131/81; PULSE 72; RESP 18
== END 2024-06-24 18:54 | disposition home or self-care (01) ==
LOC: EMS 15:51
DX: E11.40 Type 2 diabetes mellitus with diabetic neuropathy, unspecified (principal); I11.0 Hypertensive heart disease with heart failure; I50.9 Heart failure, unspecified; F15.10 Other stimulant abuse, uncomplicated
CPT/HCPCS: 99283; 99406

== ENCOUNTER 2024-07-01 10:38 | Emergency (ER) | payer OTHER ==
[~2024-07-01] VITALS: Ht 177.8 cm; Wt 79.5 kg
[~2024-07-01 10:38] MED LIST changes: +ATOR-2 PO; -ATOR20TA65 PO; -BUME1TAB50 PO; +EMPA10TA3 PO; +GLIM1TAB56 PO; -INSU100V SQ; -LOSA-381 PO; -MAGN-169 PO; -MELA3TAB89 PO; -METF-81 PO; -METO-391 PO; +METO100T14 PO; -ONDA-104 PO
[2024-07-01 10:47] VITALS: TEMP 97.6
[2024-07-01] MEDS: LORazepam 1 MG TABLET PO ONE (11:28)
[2024-07-01] MEDS: KETOROLAC TROMETHAMINE 60 MG/2 ML VIAL IM ONE (11:29)
[2024-07-01] MEDS ORDERED: FentaNYL CITRATE PF 100 MCG/2 ML VIAL IVP ONE (12:15)
[2024-07-01 12:45] VITALS: BP 114/70; PULSE 65; RESP 18
[2024-07-01] MEDS ORDERED: GABA-1181 PO (14:01)
== END 2024-07-01 14:24 | disposition home or self-care (01) ==
LOC: EMS 10:38
DX: R07.89 Other chest pain (principal); R51.9 Headache, unspecified; E11.40 Type 2 diabetes mellitus with diabetic neuropathy, unspecified; I11.0 Hypertensive heart disease with heart failure; I50.9 Heart failure, unspecified; F15.90 Other stimulant use, unspecified, uncomplicated; Z98.890 Other specified postprocedural states
CPT/HCPCS: 99283; 71045; 82962; 96372; J1885